=== PATIENT | male | born 1950 | race Caucasian/White ===

== ENCOUNTER 2016-03-13 14:30 | Inpatient (IN) | payer MEDICARE, OTHER ==
[~2016-03-13] VITALS: Ht 195.6 cm; Wt 86.9 kg
[2016-03-13 14:42] VITALS: BP 100/58; PULSE 58; RESP 18; TEMP 97.8; O2SAT 98
--- NOTE | 2016-03-13 14:56 | PD ---
HPI Chief Complaint: Abnormal Results Time Seen by Provider: 14:54 Travel History International Travel<30 days: No Contact w/Intl Traveler<30days: No Traveled to known affect area: No History of Present Illness HPI Patient family reports the patient was just discharged from [facility] so that he could be transferred here for admission firstly diagnosed cancer and hemoglobin 4. 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 Patient denies any complaints or concerns. Denies any chest pain, shortness of breath, abdominal pain, nausea, vomiting, or other concerns at this time. Patient reports he's been taking iron for the anemia but continues to have regular bowel movements. PFSH Past Medical History Anemia: Yes Diminished Hearing: No Gastrointestinal Disorders: Yes (AMPULLARY MASS/ JAUNDICE) Tetanus Vaccination: > 5 Years Influenza Vaccination: No Past Surgical History Abdominal Surgery: Yes (HERNIA REPAIR) Other Surgery: Yes (PROSTATE RADIATION) Social History Alcohol Use: No Tobacco Use: No Substance Use: No Allergies-Medications (Allergen,Severity, Reaction): Coded Allergies: Cipro (Verified Allergy, Unknown, RASH, 03/13/16) Piperazine (Verified Allergy, Unknown, RASH, 03/13/16) Reported Meds & Prescriptions Reported Meds & Active Scripts Active Reported Iron (Ferrous Fumarate) 18 Mg Tab 18 Mg PO DAILY Procrit Inj (Epoetin Den) 20,000 Unit/Ml Inj 20,000 Units SQ 3XWEEK Review of Systems Except as stated in HPI: all other systems reviewed are Neg Physical Exam Narrative GENERAL: Well-developed, well nourished, in no acute distress, and non-ill appearing. SKIN: Warm and dry. Drain noted right upper quadrant abdomen with dressing around it that is dry clean intact. HEAD: Atraumatic. Normocephalic. EYES: Pupils equal and round. EOMI. No scleral icterus. No injection or drainage. ENT: No nasal bleeding or discharge. Mucous membranes pink and moist. NECK: Trachea midline. Supple. No nuclear rigidity. CARDIOVASCULAR: Regular rate and rhythm. No murmur appreciated. RESPIRATORY: No accessory muscle use. No respiratory distress. Clear to auscultation. Breath sounds equal bilaterally. MUSCULOSKELETAL: No obvious deformities. No clubbing. No cyanosis. No edema. Full range of motion. NEUROLOGICAL: Awake and alert. No obvious cranial nerve deficits. Motor grossly within normal limits. Normal speech. PSYCHIATRIC: Appropriate mood and affect; insight and judgment normal. Data Data Last Documented VS Vital Signs Date Time Temp Pulse Resp B/P Pulse Ox O2 Delivery O2 Flow Rate FiO2 03/13/16 14:42 97.8 58 18 100/58 98 Orders Complete Blood Count With Diff (03/13/16 15:05) Comprehensive Metabolic Panel (03/13/16 15:05) Prothrombin Time / Inr (Pt) (03/13/16 15:05) Act Partial Throm Time (Ptt) (03/13/16 15:05) Ct Abd/Pel W Iv Contrast(Rout) (03/13/16 15:05) Iv Access Insert/Monitor (03/13/16 15:05) Ecg Monitoring (03/13/16 15:05) Oximetry (03/13/16 15:05) Sodium Chloride 0.9% Flush (Ns Flush) (03/13/16 15:15) Electrocardiogram (03/13/16 15:05) Oral Contrast - Adult (03/13/16 15:20) Diatrizoate Liq ( Gastroview Liq) (03/13/16 15:33) Labs Laboratory Tests Test 03/13/16 15:00 White Blood Count 11.3 TH/MM3 Red Blood Count 1.52 MIL/MM3 Hemoglobin 5.0 GM/DL Hematocrit 17.0 % Mean Corpuscular Volume 112.1 FL Mean Corpuscular Hemoglobin 33.1 PG Mean Corpuscular Hemoglobin 29.5 % Concent Red Cell Distribution Width 29.5 % Platelet Count 286 TH/MM3 Mean Platelet Volume 8.2 FL Neutrophils (%) (Auto) 86.2 % Lymphocytes (%) (Auto) 5.0 % Monocytes (%) (Auto) 7.9 % Eosinophils (%) (Auto) 0.3 % Basophils (%) (Auto) 0.6 % Neutrophils # (Auto) 9.8 TH/MM3 Lymphocytes # (Auto) 0.6 TH/MM3 Monocytes # (Auto) 0.9 TH/MM3 Eosinophils # (Auto) 0.0 TH/MM3 Basophils # (Auto) 0.1 TH/MM3 CBC Comment AUTO DIFF Differential Comment AUTO DIFF CONFIRMED Platelet Estimate NORMAL Platelet Morphology Comment NORMAL Polychromasia 5.0 % Prothrombin Time 11.1 SEC Prothromb Time International 1.0 RATIO Ratio Activated Partial 29.3 SEC Thromboplast Time Sodium Level 132 MEQ/L Potassium Level 4.2 MEQ/L Chloride Level 98 MEQ/L Carbon Dioxide Level 29.2 MEQ/L Anion Gap 5 MEQ/L Blood Urea Nitrogen 15 MG/DL Creatinine 0.59 MG/DL Estimat Glomerular Filtration 137 ML/MIN Rate Random Glucose 110 MG/DL Calcium Level 7.3 MG/DL Protein Corrected Calcium 8.8 MG/DL Total Bilirubin 5.2 MG/DL Aspartate Amino Transf 67 U/L (AST/SGOT) Alanine Aminotransferase 47 U/L (ALT/SGPT) Alkaline Phosphatase 317 U/L Total Protein 4.4 GM/DL Albumin 1.2 GM/DL MDM Medical Decision Making Medical Screen Exam Complete: Yes Emergency Medical Condition: Yes Interpretation(s) EKG reviewed by Dr. Morse, shows sinus bradycardia with ventricular rate of 56. No STEMI. Differential Diagnosis Cancer, anemia, GI bleed, electrolyte abnormality, other Narrative Course Patient seen and examined. Discussed patient with Dr. Yo. Initial laboratory and radiology studies were ordered. Discussed patient with Dr. Morse , who is agreeable with plan of care and disposition. Discussed all findings and plan care of patient, who was agreeable for admission. All questions were answered. Procedures Procedure Narrative Verbal consent was obtained. Digital rectal exam was performed. Stool specimen applied and test interpreted between 1 and 3 minutes of application and the result was positive. Internal Controls: Both positive and negative controls were validated. car top bolter was present during this exam. Physician Communication Physician Communication [id number] Yo, states he will consult on the patient and recommends repeating blood work here as well as CT of abdomen with oral and IV contrast and checking stool for occult blood. Admitting patient to medicine. Recommends given a dose of Venofer 200 mg if needed. [id number] Grier, who is agreeable to admit the patient. Diagnosis Primary Impression: Ampullary carcinoma Additional Impression: Anemia Qualified Code: D64.9 - Anemia, unspecified type Wilian Knight Mar 13, 2016 14:56
[2016-03-13 15:08] LABS: MEAN CORPUSCULAR HGB CONC 29.5 % (32.0-36.0)
[2016-03-13 15:10] VITALS: RESP 18; O2SAT 99
[2016-03-13] MEDS ORDERED: IRON18TA2 PO (15:12)
[2016-03-13] MEDS ORDERED: PROC20005 SQ (15:12)
[2016-03-13] MEDS ORDERED: SODIUM CHLORIDE 0.9% FLUSH 5 ML FLUSH IVF PRN (15:15)
[2016-03-13] MEDS ORDERED: DIATRIZOATE MEGLUM/DIATRIZOATE SOD 9 ML CUP ONE (15:33)
[2016-03-13 15:35] LABS: AUTOMATED NEUTROPHIL # 9.8 TH/MM3 (1.8-7.7); BASOPHIL # 0.1 TH/MM3 (0-0.2); BASOPHIL % 0.6 % (0.0-2.0); EOSINOPHIL % 0.3 % (0.0-4.0); LYMPHOCYTE # 0.6 TH/MM3 (1.0-4.8); MEAN CELL VOLUME 112.1 FL (80.0-100.0); MEAN CORPUSCULAR HEMOGLOBIN 33.1 PG (27.0-34.0); MONO % 7.9 % (0.0-8.0); NEUT % 86.2 % (16.0-70.0); PLATELET COUNT 286 TH/MM3 (150-450); RED BLOOD COUNT 1.52 MIL/MM3 (4.50-5.90); RED CELL DISTRIBUTION WIDTH 29.5 % (11.6-17.2); WHITE BLOOD COUNT 11.3 TH/MM3 (4.0-11.0)
[2016-03-13 15:37] LABS: HEMO FLAGS AUTO DIFF
[2016-03-13 15:44] LABS: APTT (PATIENT) 29.3 SEC (24.3-30.1); PROTHROMBIN TIME - PATIENT 11.1 SEC (9.8-11.6)
[2016-03-13 15:59] LABS: BICARBONATE 29.2 MEQ/L (21.0-32.0); POTASSIUM 4.2 MEQ/L (3.5-5.1)
[2016-03-13 16:01] LABS: CALCIUM-PROTEIN CORRECTED 8.8 MG/DL (8.5-10.1); TOTAL BILIRUBIN ADULT 5.2 MG/DL (0.2-1.0)
[2016-03-13 16:25] LABS: PLATELET ESTIMATE SMEAR NORMAL (NORMAL); PLATELET MORPHOLOGY NORMAL (NORMAL); SCAN/DIFF AUTO DIFF CONFIRMED
[2016-03-13] MEDS ORDERED: ACETAMINOPHEN 325 MG TAB PO PRN (17:00)
[2016-03-13] MEDS ORDERED: ONDANSETRON HCL 4 MG/2 ML VIAL IVP PRN (17:00)
[2016-03-13] MEDS ORDERED: NALOXONE HCL 0.4 MG/ML AMP IV PRN (17:00)
[2016-03-13] MEDS ORDERED: SODIUM CHLORIDE 0.9% FLUSH 5 ML FLUSH FLUSH PRN (17:00)
[2016-03-13] MEDS ORDERED: IOHEXOL 350 MG/ML 10 ML VIAL (for RAD DIAG) IV ONE (17:26)
--- NOTE | 2016-03-13 17:40 | RADRPT ---
EXAM DATE/TIME: 03/13/2016 17:24 [facility] COMPARISON: No previous studies available for comparison. INDICATIONS : Jaundice. Anemia. IV CONTRAST: 94 cc Omnipaque 350 (iohexol) IV ORAL CONTRAST: Prescribed oral contrast ingested. RADIATION DOSE: 15.33 CTDIvol (mGy) MEDICAL HISTORY : Anemia. Ampullary mass. SURGICAL HISTORY : Inguinal hernia repair. ENCOUNTER: Initial ACUITY: 4 - 6 days PAIN SCALE: 0/10 LOCATION: Abdomen TECHNIQUE: Volumetric scanning of the abdomen and pelvis was performed. Using automated exposure control and ad justment of the mA and/or kV according to patient size, radiation dose was kept as low as reasonably achievable to obtain optimal diagnostic quality images. FINDINGS: The bony structures are intact. Lung bases reveal bilateral pleural effusions with compressive atelec tasis and air bronchograms in bilateral lower lobes. There is a percutaneous catheter in place in the right lateral abdomen through the liver extending into the common bile duct and the duodenum 1.2 cm width of the common bile duct air containing and air within intrahepatic bile ducts. Gallbladder is v isualized to be normal. Pancreas reveals cystic dilatation throughout of the pancreatic duct up to 1. 5 cm. There is ascitic fluid throughout the abdomen. Bowel distribution is benign no evidence of free air in the abdomen and bilateral kidneys and spleen appear normal as are adrenal glands.CONCLUSION: Percutaneous biliary stent in place with air in the bile ducts with maximum width of the common duct 1.2 cm. Cystic dilatation of pancreatic duct. There is a history of apparently of an ampullary carc inoma. There is ascitic fluid throughout the abdomen and pelvis. Bilateral pleural effusions noted wi th compressive atelectasis in the posterior segments of the lower lobes Reddy Wolf MD on March 13, 2016 at 17:34 Board Certified Radiologist. This report was verified electronically.
--- NOTE | 2016-03-13 17:41 | HHI.HP ---
HPI Service [facility] Primary Care Physician Cirilo Traore, DO Admission Diagnosis ampullary cancer, anemia Diagnoses: Chief Complaint: anemia (MarvelRinaceci MITCHELL) Travel History International Travel<30 Days: No Contact w/Intl Traveler <30 Da: No Traveled to Known Affected Are: No (Rina Girer) History of Present Illness This is an unfortunate 65-year-old male who presented to this facility for evaluation of anemia, hemoglobin of 4. Patient was recently admitted at [facility] from March 01 and was discharged home today. Pt presented here for further evaluation and to seek a second opinion. Information is obtained from the patient, his and from extensive review of records from [facility]. Patient initially presented to [facility] with complaint of jaundice, generalized malaise, fatigue and early satiety for several months. He saw his primary care physician who did laboratory workup and was noted with elevated liver function tests. PCP also order ultrasound of the abdomen that showed some inflammation of the gallbladder and liver. When he presented to [facility], he was noted with significant anemia, hemoglobin of 6.2. Patient is a Jehovah witness and does not accept blood transfusion. During hospitalization at [facility], patient was evaluated by oncologist Dr. Green, Dr. Eaton, Dr. Ba, Dr. Brock (IR). Patient underwent imaging studies, that showed an ampullary mass. Dr. Eaton attempted ERCP with biopsy on 03/03/2016 however he was not able to thread the wire although a biopsy was obtained. 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 Dr. Ba evaluated patient, however mass was not resectable unless anemia was resolved. Patient received Procrit as well as iron infusions. Interventional radiology was consulted and a biliary drain was inserted on 03/03/2016. Apparently the drain clogged and it was exchanged on 03/11/2016 and is currently capped. A biliary stent was also considered however interventional radiology was not able to insert because of the low hemoglobin. Review of records indicate there is possibility that there is bleeding from the mass. Conservative care was recommended, Dr. Green briefly discussed hospice however patient and his would like to pursue more aggressive treatment; possibly at a facility in [place] that offers bloodless procedure. Dr. Ba also discussed the possibility of robotic surgery at this facility. Patient was discharge home today in fair condition and instructed to continue with oral iron replacement. Patient endorses that he was told by leaders of his hoahaoism about oncologist Dr. Willett and the possibility that he may offer some options in regards to treatment. He adamantly refuses blood transfusion per his presybeterian beliefs. In the ER, patient was evaluated, he was noted with blood pressure 100/58, heart rate 58, afebrile temperature 97.8. Sats 98% on 2 L. Hemoglobin was 5, hematocrit 17, platelets 286, WBC 11.3, MCV 112.1. BMP was remarkable for sodium of 132, hypocalcemia, corrected calcium 8.8. Total bilirubin 5.2. AST 67, ALTs 47, alkaline phosphatase 317. Dr. Willett was called from the emergency room and requested admission to medical services and repeat of the CT of the abdomen with oral and IV contrast. Stool for occult blood was checked and it was positive. He ordered a dose of Venofer 200 mg if needed. According to patient , prior to this recent events he was in good health. Has prior history of prostate cancer diagnosed in 2016 and treated at [facility] with brachytherapy. He has serial PSAs done at facility in [place]. He doesn't follow locally with a urologist. Other than prostate cancer, he denies any history of coronary artery disease, no hypertension, no hyperlipidemia, no diabetes. Patient is admitted for further evaluation and treatment. (Rina Grier) Review of Systems Constitutional: COMPLAINS OF: Fatigue, Change in appetite, DENIES: Diaphoretic episodes, Fever, Weight gain, Weight loss, Chills, Dizziness, Night Sweats Endocrine: DENIES: Heat/cold intolerance, Polydipsia, Polyuria, Polyphagia Eyes: DENIES: Blurred vision, Diplopia, Eye inflammation, Eye pain, Vision loss , Photosensitivity, Double Vision Ears, nose, mouth, throat: DENIES: Tinnitus, Hearing loss, Vertigo, Nasal discharge, Oral lesions, Throat pain, Hoarseness, Ear Pain, Running Nose, Epistaxis, Sinus Pain, Toothache, Odynophagia Respiratory: DENIES: Apneas, Cough, Snoring, Wheezing, Hemoptysis, Sputum production, Shortness of breath Cardiovascular: COMPLAINS OF: Dyspnea on Exertion, Lower Extremity Edema, DENIES: Chest pain, Palpitations, Syncope, PND, Orthopnea, Claudication Gastrointestinal: DENIES: Abdominal pain, Black stools, Bloody stools, Constipation, Diarrhea, Nausea, Vomiting, Difficulty Swallowing, Anorexia Genitourinary: DENIES: Sexual dysfunction, Urinary frequency, Urinary incontinence, Urgency, Hematuria, Dysuria, Nocturia, Penile Discharge, Testicular Pain, Testicular Swelling Musculoskeletal: DENIES: Joint pain, Muscle aches, Stiffness, Joint Swelling, Back pain, Neck pain Integumentary: COMPLAINS OF: Abnormal pigmentation, DENIES: Nail changes, Pruritus, Rash Hematologic/lymphatic: DENIES: Bruising, Lymphadenopathy Immunologic/allergic: DENIES: Eczema, Urticaria Neurologic: DENIES: Abnormal gait, Headache, Localized weakness, Paresthesias, Seizures, Speech Problems, Tremor, Poor Balance Psychiatric: DENIES: Anxiety, Confusion, Mood changes, Depression, Hallucinations, Agitation, Suicidal Ideation, Homicidal Ideation, Delusions ( Rina Grier) Past Family Social History Past Medical History Prostate cancer diagnosed in 2015, treated with brachytherapy Recent diagnosis of cancer of the ampulla. Past Surgical History Hernia surgery in 2006 EGD and colonoscopy Reported Medications Reported Meds & Active Scripts Active Reported Iron (Ferrous Fumarate) 18 Mg Tab 18 Mg PO DAILY Procrit Inj (Epoetin Den) 20,000 Unit/Ml Inj 20,000 Units SQ 3XWEEK (Rina Grier) Allergies: Coded Allergies: Cipro (Verified Allergy, Unknown, RASH, 03/13/16) Piperazine (Verified Allergy, Unknown, RASH, 03/13/16) Active Ordered Medications Inpatient Medications Acetaminophen (Tylenol) 650 mg Q4H PRN PO TEMP > 100.4; Start 03/13/16 at 17:00 IV Flush (NS Flush) 2 ml BID FLUSH ; Start 03/13/16 at 21:00 Naloxone HCl (Narcan Inj) 0.4 mg UNSCH PRN IV SEE LABEL COMMENTS; Start at 17:00 Ondansetron HCl (Zofran Inj) 4 mg Q6H PRN IVP NAUSEA OR VOMITING; Start at 17:00 Family History Mother is alive and well, she's 92 years old Father disease, history of coronary artery disease Has a sister who is alive and well Has an aunt on the maternal side with history esophageal cancer Social History 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 SKIN: Cool, dry jaundice. HEAD: Atraumatic. Normocephalic. No temporal or scalp tenderness. EYES: Pupils equal round and reactive. Extraocular motions intact. Scleral icterus. No injection or drainage. ENT: Nose without bleeding, purulent drainage or septal hematoma. Throat without erythema, tonsillar hypertrophy or exudate. Uvula midline. Airway patent. NECK: Trachea midline. No JVD or lymphadenopathy. Supple, nontender, no meningeal signs. CARDIOVASCULAR: Regular rate and rhythm without murmurs, gallops, or rubs. RESPIRATORY: Clear to auscultation. Breath sounds equal bilaterally. No wheezes , rales, or rhonchi. GASTROINTESTINAL: Abdomen soft, distended, positive for ascites. Bowel sounds, normoactive 4. Has a biliary drain to the right upper abdomen that is capped, dressing is dry and intact. MUSCULOSKELETAL: Extremities without clubbing, cyanosis. No joint tenderness, effusion, or edema noted. No calf tenderness. Negative Homans sign bilaterally. Patient noted with significant pedal edema, 3+, pedal pulses difficult to palpate due to the edema. NEUROLOGICAL: Awake and alert. Cranial nerves II through XII intact. Motor and sensory grossly within normal limits. Five out of 5 muscle strength in all muscle groups. Normal speech. Laboratory Laboratory Tests Test 03/13/16 15:00 White Blood Count 11.3 Red Blood Count 1.52 Hemoglobin 5.0 Hematocrit 17.0 Mean Corpuscular Volume 112.1 Mean Corpuscular Hemoglobin 33.1 Mean Corpuscular Hemoglobin 29.5 Concent Red Cell Distribution Width 29.5 Platelet Count 286 Mean Platelet Volume 8.2 Neutrophils (%) (Auto) 86.2 Lymphocytes (%) (Auto) 5.0 Monocytes (%) (Auto) 7.9 Eosinophils (%) (Auto) 0.3 Basophils (%) (Auto) 0.6 Neutrophils # (Auto) 9.8 Lymphocytes # (Auto) 0.6 Monocytes # (Auto) 0.9 Eosinophils # (Auto) 0.0 Basophils # (Auto) 0.1 CBC Comment AUTO DIFF Differential Comment AUTO DIFF CONFIRMED Platelet Estimate NORMAL Platelet Morphology Comment NORMAL Polychromasia 5.0 Prothrombin Time 11.1 Prothromb Time International 1.0 Ratio Activated Partial 29.3 Thromboplast Time Sodium Level 132 Potassium Level 4.2 Chloride Level 98 Carbon Dioxide Level 29.2 Anion Gap 5 Blood Urea Nitrogen 15 Creatinine 0.59 Estimat Glomerular Filtration 137 Rate Random Glucose 110 Calcium Level 7.3 Protein Corrected Calcium 8.8 Total Bilirubin 5.2 Aspartate Amino Transf 67 (AST/SGOT) Alanine Aminotransferase 47 (ALT/SGPT) Alkaline Phosphatase 317 Total Protein 4.4 Albumin 1.2 (Rina Grier) Result Diagram: 03/13/16 1500 03/13/16 1500 Assessment and Plan Problem List: (1) Anemia (2) Ampullary carcinoma (3) Obstructive jaundice due to cancer (4) History of prostate cancer (5) Protein calorie malnutrition (6) Heme positive stool (7) percutaneous biliary drain Assessment and Plan Admit to Dr. 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 Patient with significant anemia, Jehovah witness, does not permit blood transfusion. Has received Venofer, Procrit. Hemoglobin 5, hematocrit 17. -Dr. Willett has been consulted -Defer to Dr. Willett for Venofer infusion and/or Procrit CT of the abdomen has been ordered, results are pending -Discussed with patient and , their goals remain aggressive. They plan to also pursue further treatment at facility in [place] that offers bloodless procedures. History of prostate cancer, status post radiation [facility] -Patient has serial PSAs done as outpatient S/P right biliary drain -monitor site -Drain currently capped, may need to be placed to gravity for drainage. Ascites and peripheral edema -monitor for now -elevate legs SCDs for DVT prophylaxis Home medications reviewed, initiated as indicated Condition guarded, goals of care remain aggressive. Plan of care discussed with patient and his , their questions answered detail. Plan of care discussed with attending and registered nurse. Further management of the patient will be dependent on the hospital course Patient requires inpatient admission for anticipated stay greater than 2 days for symptomatic anemia with recent diagnosis of ampullary cancer, obstructive jaundice with ascites and peripheral edema. Patient at risk for complications that can result in possible cardiogenic shock, possibly . Patient requires admission for evaluation by oncology, monitoring of blood counts, IV iron infusion, further diagnostic workup. Anticipated discharge back to home with home health care versus rehabilitation facility when stable This patient was seen by myself and Dr. Nelson, this H&P is written on his behalf (Rina Grier) Assessment and Plan PT is seen & Examined record s from [facility] reviewed d/w PT & his family at bedside d/w Rina d/w Dr willett see Orders see H&P by Rina delgado f/u Sukhdeep Nelson MD Mar 13, 2016 19:16 (Sukhdeep Nelson MD) Physician Certification 2 Midnight Certification Type: Admission for Inpatient Services Order for Inpatient Services The services are ordered in accordance with Medicare regulations or non- Medicare payer requirements, as applicable. In the case of services not specified as inpatient-only, they are appropriately provided as inpatient services in accordance with the 2-midnight benchmark. Estimated LOS (days): 2 2 days is the estimated time the patient will need to remain in the hospital, assuming treatment plan goals are met and no additional complications. Post-Hospital Plan: Not yet determined (Rina Grier) Problem Qualifiers (1) Anemia: Qualified Code: D64.9 - Anemia, unspecified type Rina Grier Mar 13, 2016 17:41 Sukhdeep Nelson MD Mar 18, 2016 21:42
[2016-03-13 17:50] VITALS: BP 102/58; PULSE 58; RESP 17; TEMP 98; O2SAT 99
[2016-03-13 19:00] VITALS: BP 112/63; PULSE 63; RESP 14; TEMP 98.4; O2SAT 97
--- NOTE | 2016-03-13 19:16 | HHI.PR ---
Objective Objective Results - Vital Signs Date Time Temp Pulse Resp B/P Pulse Ox O2 Delivery O2 Flow Rate FiO2 03/13/16 17:50 98.0 58 17 102/58 99 Nasal Cannula 2 03/13/16 15:10 18 99 Room Air 03/13/16 14:50 58 18 98 Nasal Cannula 2 03/13/16 14:42 97.8 58 18 100/58 98 I/O 03/12/16 03/12/16 03/12/16 03/13/16 03/13/16 03/13/16 07:00 15:00 23:00 07:00 15:00 23:00 Output Total 600 ml Balance -600 ml Output Urine Total 600 ml # Voids 1 # Bowel Movements 0 Result Diagram: 03/13/16 1500 03/13/16 1500 Other Results Laboratory Tests Test 03/13/16 15:00 White Blood Count 11.3 Red Blood Count 1.52 Hemoglobin 5.0 Hematocrit 17.0 Mean Corpuscular Volume 112.1 Mean Corpuscular Hemoglobin 33.1 Mean Corpuscular Hemoglobin 29.5 Concent Red Cell Distribution Width 29.5 Platelet Count 286 Mean Platelet Volume 8.2 Neutrophils (%) (Auto) 86.2 Lymphocytes (%) (Auto) 5.0 Monocytes (%) (Auto) 7.9 Eosinophils (%) (Auto) 0.3 Basophils (%) (Auto) 0.6 Neutrophils # (Auto) 9.8 Lymphocytes # (Auto) 0.6 Monocytes # (Auto) 0.9 Eosinophils # (Auto) 0.0 Basophils # (Auto) 0.1 CBC Comment AUTO DIFF Differential Comment AUTO DIFF CONFIRMED Platelet Estimate NORMAL Platelet Morphology Comment NORMAL Polychromasia 5.0 Prothrombin Time 11.1 Prothromb Time International 1.0 Ratio Activated Partial 29.3 Thromboplast Time Sodium Level 132 Potassium Level 4.2 Chloride Level 98 Carbon Dioxide Level 29.2 Anion Gap 5 Blood Urea Nitrogen 15 Creatinine 0.59 Estimat Glomerular Filtration 137 Rate Random Glucose 110 Calcium Level 7.3 Protein Corrected Calcium 8.8 Total Bilirubin 5.2 Aspartate Amino Transf 67 (AST/SGOT) Alanine Aminotransferase 47 (ALT/SGPT) Alkaline Phosphatase 317 Total Protein 4.4 Albumin 1.2 Physical Exam Physical Exam PT is seen & Examined record s from [facility] reviewed d/w PT & his family at bedside d/w Rina d/w Dr currie see Orders see H&P by Rina delgado f/u Sukhdeep Nelson MD Mar 13, 2016 19:16
--- NOTE | 2016-03-13 19:20 | EKG ---
Date Performed: 03/13/2016 Time Performed: 15:41:38 PTAGE: 65 years EKG: BASELINE ARTIFACT PRESENT. SINUS BRADYCARDIA MODERATE INTRAVENTRICULAR CONDUCTION DELAY BOR DERLINE ECG NO PREVIOUS TRACING DOCTOR: Arben House Interpretating Date/Time 03/13/2016 19:19:08
--- NOTE | 2016-03-13 21:09 | MB ---
cc: CIRILO TRAORE ZAFAR MD DATE OF CONSULTATION 03/13/16 DATE OF 1950. PRIMARY CARE PHYSICIAN Dr. Cirilo Traore CONSULTING PHYSICIAN Dr. Nelson of the hospitalist service. 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 Additionally, the patient has severe anemia secondary to GI blood losses. CHIEF COMPLAINT Mr. Mullins reports having had a three-month history of decreased appetite, weight loss and a two-month history of jaundice. HISTORY OF PRESENT ILLNESS Mr. Mullins is a very pleasant 65-year-old male who presented to the [facility] emergency department earlier this afternoon after being discharged from [facility] in [place]. Mr. Mullins reports being in his usual excellent state of health until November of 2015. Up until that time, he was fully functional and reports hiking up to eight miles at a time without any impairments. The patient, starting late November 2015, began to notice a decreasing appetite and onset of increased fatigue. He reported these symptoms to his primary care physician, Dr. Cirilo Traore, and underwent blood work. Blood work revealed abnormal liver function tests specifically elevated bilirubin levels. The patient underwent outpatient imaging studies including ultrasound of the abdomen which revealed abnormalities within the liver and biliary drainage system. He was subsequently recommended admission to [facility] with inpatient evaluation. The patient was referred to [facility] where he was confirmed to have hyperbilirubinemia secondary to biliary obstruction. He was also noted to be anemic due to iron deficiency from GI losses. He underwent imaging studies including CT scan of the abdomen and pelvis with intravenous contrast performed on 03/01/2016; the study revealed marked biliary and pancreatic duct dilatation ending at the ampulla. The gallbladder was also noted to be dilated. There was an ampullary mass-like density suspicious for malignancy. Additionally, he underwent an MRCP on 03/05/2015 which revealed persistent dilatation of the pancreatic duct as well as the common bile duct, intrahepatic biliary ducts were also distended. A periampullary mass was suspected, although not well visualized. The patient underwent an endoscopy on 03/03/2016. This revealed a large ulcerated mass around the ampulla consistent with malignancy. This was biopsied. The pathologic findings were consistent with adenocarcinoma (moderately differentiated) with focal signet ring formation. An ERCP could not be performed due to inability to pass the scope beyond the obstruction. The patient subsequently underwent placement of a percutaneous biliary drain for relief of the hyperbilirubinemia and biliary obstruction at [facility]. Additionally, he was noted to be anemic secondary to GI losses (stool for occult blood was positive on testing at [facility] on 03/13/2016). The patient was evaluated by oncology and surgical oncology at [facility]. Given his poor performance status, poor nutritional status and anemia, he was recommended Hospice level of care. The patient has yet to undergo any systemic therapy. He was evaluated by one of the [place] cancer specialists at that time. He was being discharged today with Hospice level of care. The patient and his decided, however, to come to [facility] in [place] for a second opinion. PAST MEDICAL HISTORY 1. Recently diagnosed adenocarcinoma of the ampulla. 2. Prostate carcinoma diagnosed in 2014 treated with brachytherapy. PAST SURGICAL HISTORY 1. Prostate biopsy. 2. Hernia repair in 2016 FAMILY HISTORY Father at age 79. Mom living at 92. The patient has two separate aunts with metastatic malignancy and an uncle who had prostate cancer in his 80s. He also recently lost a first cousin to a cancer. They do not know what the primary was. ALLERGIES CIPROFLOXACIN - CAUSES A RASH PIPERAZINE SOCIAL HISTORY The patient is , lives at home with his . 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 MEDICATIONS Current inpatient 1. Tylenol 650 mg p.o. q.4 h as needed for fever. 2. Zofran 4 mg IV q.6 h as needed for nausea and vomiting. REVIEW OF SYSTEMS A 13-point review of systems is obtained. the following are the pertinent positives: CONSTITUTIONAL: The patient reports good appetite, reports weight loss, reports generalized fatigue and weakness. HEENT: Denies headaches, blurry vision, difficulty swallowing or soreness in the throat. RESPIRATORY: Reports exertional dyspnea, reports cough, denies hemoptysis. CARDIOVASCULAR: Denies angina-like chest pain, PND, orthopnea. GI: Reports abdominal distension, denies nausea, vomiting, diarrhea, hematochezia. He does report dark stools. He does report yellow jaundice but denies epigastric pain or abdominal pain in general LOWER EXTREMITIES: Bilateral pretibial edema. No calf tenderness. PHYSICIAN ASSISTANT CERTIFIED: No focal sensory or motor deficits but does feel generally weak. PHYSICAL EXAMINATION VITAL SIGNS: temperature 98 degrees Fahrenheit, heart rate 58 beats a minute, respiratory rate 17, blood pressure 102/58, O2 sats are 99% on room air. GENERAL APPEARANCE: Mr. Mullins is an elderly male. He is tall, pale and jaundiced appearing. He is sitting up in bed and is in no apparent distress. HEENT: Head atraumatic, normocephalic, conjunctive are pale, sclerae are icteric, EOMI, PERRLA, oral exam no pharyngeal erythema. NECK: No palpable cervical or supraclavicular lymphadenopathy. RESPIRATORY: Decreased bibasilar breath sounds with dullness to percussion, good air movement on anterior exam over the upper and middle lung zones. CARDIOVASCULAR: Regular rhythm, S1-S2. No obvious murmurs, rubs or gallops. ABDOMEN: Belly is distended. He is generally thin. There is some cutaneous edema identified. No palpable organ enlargement is appreciated. EXTREMITIES: Bilateral pretibial edema, no calf tenderness. He does have tenderness over the tibia, specifically over the left superior anterior aspect of the tibia. PHYSICIAN ASSISTANT CERTIFIED: No focal sensory motor deficits. LABORATORY FINDINGS Blood work dated 03/13/2016: WBC count 11.3, hemoglobin 5 gm/dl, hematocrit 17%, MCV 11.2, platelet count 286, absolute neutrophil count of 9.8. Chemistries: Sodium 132, potassium 4.2, chloride 98, bicarbonate 29, BUN 15, creatinine 0.6, EGFR 137, calcium 7.3, total bilirubin is 5.2, AST 76, ALT 47, alkaline phosphatase 317, albumin of 1.2. Coags - PT 11.1, PTT 29, INR one. PATHOLOGY: Review of pathology report forwarded to us from [facility] dated 03/03/2016: ampullary mass biopsy - Moderately differentiated adenocarcinoma with focal signet ring formation. Lymphovascular invasion was not identified. IMAGING STUDIES CT scan of the abdomen with intravenous contrast dated 03/13/2016: Lung bases reveal bilateral pleural effusions with compressive atelectasis and air bronchograms in the bilateral lower lobe. There is a percutaneous biliary drain in place with air in the bile duct with maximum width of the common bile duct of 1.2 cm. Cystic dilatation of the pancreatic duct. There is apparently a history of ampullary carcinoma identified. Ascitic fluid throughout the abdomen and pelvis. Bilateral pleural effusions noted as outlined above. ASSESSMENT Mr. 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 The patient initially presented several weeks ago with loss of appetite and obstructive jaundice. An inpatient workup at [facility] which included an MRCP, CT of the abdomen and pelvis as well as an EGD revealed a large ampullary mass resulting in common bile duct obstruction with resultant dilatation of the pancreatic duct and extra- and intrahepatic bile ducts. An ERCP could not identify the orifice of the common bile duct and, therefore, percutaneous drain had to be placed for management of the hyperbilirubinemia. Over the course of his hospitalization, the patient became increasingly anemic secondary to GI losses ( stool guaiac for blood positive) the etiology of which was thought to be iron deficiency anemia. Because he is a Pentecostal, he was treated with intravenous iron and Epogen support. Per the patient and his family, they were recommended best supportive care/Hospice level of care and wish to seek out second opinion. They therefore presented to [facility] directly after being discharged from [facility] in [facility]. RECOMMENDATIONS 1. Adenocarcinoma with signet cell formation of the ampule of vater: At this point, I would like to have the patient evaluated by radiation oncology for palliative radiation to the ampule area mass. I suspect this lesion is actively bleeding. The priority at this time is to stabilize his hemoglobin and hematocrit and subsequently stage him to determine if this man may eventually be resectable. It may be reasonable to obtain additional inpatient staging studies with a CT of the chest as well. He does have ascites as well as bilateral pleural effusions. These may be secondary to his low albumin and secretion. He has no definite evidence of metastases based on his imaging scans. Additionally, I will obtain a CEA and CA19-9 tumor markers. 2. Anemia: Given the patient's preference and jewish beliefs, he will be treated without blood product support. He will receive ongoing iron infusions as well as erythropoiesis stimulating agents. The priority, however, will be to stop the ongoing bleeding. 3. Nutrition: He is tolerating p.o. diet well. I would rather continue this. It may be reasonable to treat him with intravenous albumin infusions to help manage his third spacing if this becomes more problematic. The oncology service will follow along the hospital course. MD BRANDON Ghotra /7:48 PM /8:37 PM
[2016-03-13] MEDS: SODIUM CHLORIDE 0.9% FLUSH 5 ML FLUSH FLUSH SCH (21:12)
[2016-03-13] MEDS: IRON SUCROSE INJ 100 MG in SODIUM CHLORIDE 0.9% INJ 100 ML IV SCH (22:13)
[2016-03-13 23:00] VITALS: BP 108/61; PULSE 70; RESP 15; O2SAT 98
[2016-03-14] VITALS (7 sets, daily range): BP systolic 93–106; BP diastolic 48–57; PULSE 62–64; RESP 16–19; TEMP 97.7–99.2; O2SAT 93–97
--- NOTE | 2016-03-14 07:45 | PD.ONC.PN ---
Subjective Subjective Remarks Mr. Mullins reports persistent cough whenever he tries to take a deep breath. He denies pain, had a full meal last night without problems ( brought it in) . Wants to know if he can go on a regular diet. No other changes reported. Objective Data Date Time Temp Pulse Resp B/P Pulse Ox O2 Delivery O2 Flow Rate FiO2 03/14/16 04:00 63 16 106/48 95 03/14/16 00:00 97.7 64 16 93/50 93 03/13/16 23:00 70 15 108/61 98 Nasal Cannula 2 03/13/16 19:00 63 14 97 Nasal Cannula 2 03/13/16 19:00 98.4 63 14 112/63 97 Nasal Cannula 2 03/13/16 17:50 98.0 58 17 102/58 99 Nasal Cannula 2 03/13/16 15:10 18 99 Room Air 03/13/16 14:50 58 18 98 Nasal Cannula 2 03/13/16 14:42 97.8 58 18 100/58 98 Result Diagram: 03/13/16 1500 03/13/16 1500 Laboratory Results Laboratory Tests Test 03/13/16 15:00 White Blood Count 11.3 TH/MM3 Red Blood Count 1.52 MIL/MM3 Hemoglobin 5.0 GM/DL Hematocrit 17.0 % Mean Corpuscular Volume 112.1 FL Mean Corpuscular Hemoglobin 33.1 PG Mean Corpuscular Hemoglobin 29.5 % Concent Red Cell Distribution Width 29.5 % Platelet Count 286 TH/MM3 Mean Platelet Volume 8.2 FL Neutrophils (%) (Auto) 86.2 % Lymphocytes (%) (Auto) 5.0 % Monocytes (%) (Auto) 7.9 % Eosinophils (%) (Auto) 0.3 % Basophils (%) (Auto) 0.6 % Neutrophils # (Auto) 9.8 TH/MM3 Lymphocytes # (Auto) 0.6 TH/MM3 Monocytes # (Auto) 0.9 TH/MM3 Eosinophils # (Auto) 0.0 TH/MM3 Basophils # (Auto) 0.1 TH/MM3 CBC Comment AUTO DIFF Differential Comment AUTO DIFF CONFIRMED Platelet Estimate NORMAL Platelet Morphology Comment NORMAL Polychromasia 5.0 % Prothrombin Time 11.1 SEC Prothromb Time International 1.0 RATIO Ratio Activated Partial 29.3 SEC Thromboplast Time Sodium Level 132 MEQ/L Potassium Level 4.2 MEQ/L Chloride Level 98 MEQ/L Carbon Dioxide Level 29.2 MEQ/L Anion Gap 5 MEQ/L Blood Urea Nitrogen 15 MG/DL Creatinine 0.59 MG/DL Estimat Glomerular Filtration 137 ML/MIN Rate Random Glucose 110 MG/DL Calcium Level 7.3 MG/DL Protein Corrected Calcium 8.8 MG/DL Total Bilirubin 5.2 MG/DL Aspartate Amino Transf 67 U/L (AST/SGOT) Alanine Aminotransferase 47 U/L (ALT/SGPT) Alkaline Phosphatase 317 U/L Total Protein 4.4 GM/DL Albumin 1.2 GM/DL Imaging Studies Last 24 hours Impressions Abdomen/Pelvis CT 03/13/16 1505 Signed Impressions: Service Date/Time: Sunday, March 13, 2016 17:24 - CONCLUSION: Percutaneous biliary stent in place with air in the bile ducts with maximum width of the common duct 1.2 cm. Cystic dilatation of pancreatic duct. There is a history of apparently of an ampullary carcinoma. There is ascitic fluid throughout the abdomen and pelvis. Bilateral pleural effusions noted with compressive atelectasis in the posterior segments of the lower lobes Reddy Wolf MD Administered Medications Medications (Trade) Dose Ordered Sig/Zackary Route PRN Reason Start Time Stop Time Status Last Admin Dose Admin IV Flush 2 ml 2 ml BID FLUSH 03/13/16 21:00 03/13/16 21:12 Iron Sucrose/ Sodium Chloride (Venofer Inj/NS Inj) 105 ml @ 105 mls/hr DAILY IV 03/13/16 22:00 03/15/16 09:59 03/13/16 22:13 Objective Remarks GENERAL APPEARANCE: Mr. Mullins is an elderly male. He is tall, pale and jaundiced appearing. He is sitting up in bed and is in no apparent distress. HEENT: Head atraumatic, normocephalic, conjunctive are pale, sclerae are icteric, EOMI, PERRLA, oral exam no pharyngeal erythema. NECK: No palpable cervical or supraclavicular lymphadenopathy. RESPIRATORY: Decreased bibasilar breath sounds with dullness to percussion, good air movement on anterior exam over the upper and middle lung zones. CARDIOVASCULAR: Regular rhythm, S1-S2. No obvious murmurs, rubs or gallops. ABDOMEN: Belly is distended. He is generally thin. There is some cutaneous edema identified. No palpable organ enlargement is appreciated. EXTREMITIES: Bilateral pretibial edema, no calf tenderness. He does have tenderness over the tibia, specifically over the left superior anterior aspect of the tibia. PRECAST MOLDER: No focal sensory motor deficits. Assessment/Plan Assessment Mr. 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 The patient initially presented several weeks ago with loss of appetite and obstructive jaundice. An inpatient workup at [facility] which included an MRCP, CT of the abdomen and pelvis as well as an EGD revealed a large ampullary mass resulting in common bile duct obstruction with resultant dilatation of the pancreatic duct and extra- and intrahepatic bile ducts. An ERCP could not identify the orifice of the common bile duct and, therefore, percutaneous drain had to be placed for management of the hyperbilirubinemia. Over the course of his hospitalization, the patient became increasingly anemic secondary to GI losses ( stool guaiac for blood positive) the etiology of which was thought to be iron deficiency anemia. Because he is a [employer], he was treated with intravenous iron and Epogen support. Per the patient and his family, they were recommended best supportive care/Hospice level of care and wish to seek out second opinion. They therefore presented to [facility] directly after being discharged from [facility] in [facility]. Plan 1. Ampullary mass: Rad Onc to evaluate the pt today for palliative RT to the mass to help stop bleeding. 2. Anemia: IV iron and EPO. 3. Nutrition: Diet changed to regular. 4. Pleural effusions: Given low H&H at this time, I would not recommend thoracentesis. Symptomatic management. 5. Percutaneous biliary tube: Request IR to evaluate for instructions on care ; i.e. whether we need to cap or let it drain and also, instructions on flushing this. 6. Biliary obstruction: Repeat T. Bili level today; if increasing; will need to open drain to allow flow. Trevor Willett MD Mar 14, 2016 07:45
[2016-03-14] MEDS: SODIUM CHLORIDE 0.9% FLUSH 5 ML FLUSH FLUSH SCH ×2 (09:08→20:55)
[2016-03-14] MEDS: IRON SUCROSE INJ 100 MG in SODIUM CHLORIDE 0.9% INJ 100 ML IV SCH (10:14)
--- NOTE | 2016-03-14 10:15 | MB ---
cc: YAA WILLETT MD PORTER, AARON DO KROCHAK,MARY Mercado M.D. DATE OF CONSULTATION 03/14/2016 DATE OF 1950 CHIEF COMPLAINT 1. Moderately differentiated adenocarcinoma with signet ring formation of the ampule of Vater. 2. Severe anemia secondary to GI blood loss in a patient who declines blood transfusions BRIEF HISTORY This is a 65-year-old gentleman who presented to the emergency room at [facility]. His history is that he was worked up at [facility] in [place] and found to have a adenocarcinoma of the ampulla of Vater. He had a transcutaneous biliary drainage procedure as they were not able to bypass the tumor endoscopically. Unfortunately, he was not felt to be a candidate for surgery or chemotherapy and he was referred home on hospice. He subsequently presented to this emergency room for a second opinion. He has been seen by Dr. Willett. He has had a CT scan of his abdomen and pelvis performed revealing a biliary stent in place with air in the bile duct. This is a percutaneous biliary stent. There is a cystic dilatation of the pancreatic duct. There is ascitic fluid with bilateral pleural effusions. Additionally, this gentleman has been noted to have a hemoglobin of five. He has documented GI blood loss and for druze regions he does not agree to blood transfusions We have been requested to see this gentleman to consider a palliative radiation treatment in an attempt to stop this bleeding and if he is able to recover adequately, further palliative care in the form of surgery or chemotherapy would be considered. In general, this gentleman is pain free. He admits to being weak. He has been mobile. He admits to a 15-20 pounds weight loss. PAST MEDICAL AND SURGICAL HISTORY Includes: 1. Adenocarcinoma the ampulla of Vater. 2. Previous adenocarcinoma of the prostate treated with HDR in [place] in 2014. 3. He has also had a hernia repair. FAMILY HISTORY AND SOCIAL HISTORY He is and lives at home with his . 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 His mother is living at age 92. Father at age 79. He has an uncle with prostate cancer. ALLERGIES CIPROFLOXACIN AND PIPERAZINE REVIEW OF SYSTEMS He has had a 15-20 pounds weight loss constitutionally. HEAD, EYES, EARS, NOSE, AND THROAT: Denies difficulty with vision, swallowing or altered taste. RESPIRATORY: He does get short of breath with exertion. No cough or sputum. CARDIOVASCULAR: Denies chest pains, palpitation, but does have dependent edema. GI: Has abdominal distension likely related to ascites. No abdominal pain. He has had dark stools. LEAD OXIDE MILL TENDER: No seizures or strokes. MUSCULOSKELETAL: Denies bone related pain. : Denies dysuria or hematuria. His urine was dark, but has returned to normal. SKIN: Has been yellow, denies significant pruritus. PHYSICAL EXAM Today on exam, this gentleman is noted to be afebrile with a pulse of 62 and regular, respiratory rate of 19, blood pressure recorded at 94/50. His O2 sat on room air was 93%. HEAD, EYES, EARS, NOSE, AND THROAT: He did have scleral icterus, full EOMs. His oral cavity revealed no mucosal surface lesions. There is no adenopathy in his head and neck regions. LUNGS: His lung bolden were clear. He had a normal first and second heart sound without murmurs, rubs or bruits. EXTREMITIES: He has edema of the left arm which has just developed in the past several days and may be related to previous IV infusion. His right arm is unremarkable. ABDOMEN: His abdominal exam revealed ascites. No palpable masses. EXTREMITIES: He has pitting edema bilaterally to his knees. He does not have anasarca. IMPRESSION I have discussed this case with Dr. Willett. I have reviewed the data in the chart documenting his previous investigations including the MRCP, his endoscopy and biopsy results as performed at [facility]. By way of discussion, I have reviewed all of these findings with this gentleman. I have told him that the point of radiation treatment would be to attempt to control the bleeding. He was unable to build up his strength. It is possible that he could be considered for more aggressive care. If not, he would require hospice as previously outlined, but with this treatment, we would hope he would be less symptomatic and as such he would be a very worthwhile palliation. This gentleman does want to proceed with treatment as previously indicated. He will refused blood transfusions for druze reasons and so this was imperative that we start this on emergent basis and we intend to start his treatment today or if there are unexpected problems no later than tomorrow. MD NICOLÁS Pollard/DJCedrick /9:41 AM /10:01 AM
--- NOTE | 2016-03-14 11:19 | HHI.PR ---
Subjective History of Present Illness resting comfortably I am ok for Radiation therapy no n/v good appetite no fever or chills offers no other c/o Vitals/Results Intake & Output 03/13/16 03/13/16 03/14/16 15:00 23:00 07:00 Intake Total 480 ml Output Total 600 ml 600 ml Balance -600 ml -120 ml Intake Oral 480 ml Output Urine Total 600 ml 600 ml # Voids 1 # Bowel Movements 0 0 Vital Signs Vital Signs Date Time Temp Pulse Resp B/P Pulse Ox O2 Delivery O2 Flow Rate FiO2 03/14/16 08:00 98.1 62 19 94/50 93 03/14/16 04:00 63 16 106/48 95 03/14/16 00:00 97.7 64 16 93/50 93 03/13/16 23:00 70 15 108/61 98 Nasal Cannula 2 03/13/16 19:00 63 14 97 Nasal Cannula 2 03/13/16 19:00 98.4 63 14 112/63 97 Nasal Cannula 2 03/13/16 17:50 98.0 58 17 102/58 99 Nasal Cannula 2 03/13/16 15:10 18 99 Room Air 03/13/16 14:50 58 18 98 Nasal Cannula 2 03/13/16 14:42 97.8 58 18 100/58 98 CBC/BMP: 03/13/16 1500 03/13/16 1500 Lab Results Laboratory Tests Test 03/13/16 03/14/16 15:00 07:16 White Blood Count 11.3 TH/MM3 Red Blood Count 1.52 MIL/MM3 Hemoglobin 5.0 GM/DL Hematocrit 17.0 % Mean Corpuscular Volume 112.1 FL Mean Corpuscular Hemoglobin 33.1 PG Mean Corpuscular Hemoglobin 29.5 % Concent Red Cell Distribution Width 29.5 % Platelet Count 286 TH/MM3 Mean Platelet Volume 8.2 FL Neutrophils (%) (Auto) 86.2 % Lymphocytes (%) (Auto) 5.0 % Monocytes (%) (Auto) 7.9 % Eosinophils (%) (Auto) 0.3 % Basophils (%) (Auto) 0.6 % Neutrophils # (Auto) 9.8 TH/MM3 Lymphocytes # (Auto) 0.6 TH/MM3 Monocytes # (Auto) 0.9 TH/MM3 Eosinophils # (Auto) 0.0 TH/MM3 Basophils # (Auto) 0.1 TH/MM3 CBC Comment AUTO DIFF Differential Comment AUTO DIFF CONFIRMED Platelet Estimate NORMAL Platelet Morphology Comment NORMAL Polychromasia 5.0 % Prothrombin Time 11.1 SEC Prothromb Time International 1.0 RATIO Ratio Activated Partial 29.3 SEC Thromboplast Time Sodium Level 132 MEQ/L Potassium Level 4.2 MEQ/L Chloride Level 98 MEQ/L Carbon Dioxide Level 29.2 MEQ/L Anion Gap 5 MEQ/L Blood Urea Nitrogen 15 MG/DL Creatinine 0.59 MG/DL Estimat Glomerular Filtration 137 ML/MIN Rate Random Glucose 110 MG/DL Calcium Level 7.3 MG/DL Protein Corrected Calcium 8.8 MG/DL Total Bilirubin 5.2 MG/DL 5.2 MG/DL Aspartate Amino Transf 67 U/L (AST/SGOT) Alanine Aminotransferase 47 U/L (ALT/SGPT) Alkaline Phosphatase 317 U/L Total Protein 4.4 GM/DL Albumin 1.2 GM/DL Carcinoembryonic Antigen 8.3 NG/ML CA 19-9 Antigen 95.2 U/ML Physical Exam General General Appearance: No Acute Distress, Comfortable Eyes Eye Exam: Extraocular Movement Intact, Jaundice Ears & Nose Ears & Nose Exam: Nasal Mucosa [place] Throat Throat Exam: Oral Mucosa [place] & Moist Neck Neck Exam: Neck Supple, Trachea Midline Pulmonary Resp Exam: Clear Bilaterally, Breath Sounds Equal Cardiology CV Exam: Regular, Normal Sinus Rhythm Gastrointestinal/Abdomen GI Exam: Soft, Non-Tender, Bowel Sounds Present GI Remarks R sided drain in place Integumentary Skin Exam: Warm, Dry Extremeties Extremities Exam: Moderate Edema Neurologic Neuro Exam: Alert, Awake, Oriented, Speech Clear, Moving All Extremities Assessment/Plan Assessment/Plan Assessment and Plan Problem List: (1) severe Anemia (2) Ampullary carcinoma (3) Obstructive jaundice due to cancer s/p percutaneous biliary drain (4) jehovah witness (5) Protein calorie malnutrition (6) Heme positive stool (7) Severe protein calorie malnutrition (8) Ascites ? etiology ?? malignancy vs 3rd spacing d/t hypoalbuminemia . 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 Patient with significant anemia, Jehovah witness, does not permit blood transfusion. Has received Venofer, Procrit. Hemoglobin 5, hematocrit 17. - Venofer infusion - Procrit 20K U qm/w/f - f/u H/H CT of the abdomen noted - Radiation oncology consulted for radiation therapy -S/P right biliary drain -intermittent flushing -Drain currently capped, may need to be placed to gravity for drainage. Ascites and peripheral edema -monitor for now, consider paracentesis /diagnostic if deemed necessary ,will d/ w Dr currie -elevate legs History of prostate cancer, status post radiation at cancer treatment centers of [facility] -Patient has serial PSAs done as outpatient SCDs for DVT prophylaxis Condition guarded, goals of care remain aggressive. will f/u Sukhdeep Nelson MD Mar 14, 2016 11:18
[2016-03-14] MEDS: EPOETIN ALFA 20,000 UNITS/ML VIAL SQ SCH (20:55)
[2016-03-14] MEDS: FAMOTIDINE 20 MG TAB PO SCH (20:55)
[2016-03-14] MEDS: SODIUM CHLORIDE 0.9% 10 ML VIAL OTHER SCH (21:00)
[2016-03-15] VITALS (7 sets, daily range): BP systolic 92–113; BP diastolic 46–65; PULSE 68–72; RESP 18–20; TEMP 97.3–98.9; O2SAT 92–97
[2016-03-15 05:01] LABS: MEAN CELL VOLUME 111.3 FL (80.0-100.0); MEAN CORPUSCULAR HEMOGLOBIN 33.6 PG (27.0-34.0); MEAN CORPUSCULAR HGB CONC 30.2 % (32.0-36.0); PLATELET COUNT 323 TH/MM3 (150-450); RED BLOOD COUNT 1.63 MIL/MM3 (4.50-5.90); RED CELL DISTRIBUTION WIDTH 26.5 % (11.6-17.2); WHITE BLOOD COUNT 10.2 TH/MM3 (4.0-11.0)
[2016-03-15 05:04] LABS: REVIEW FLAG FINAL
[2016-03-15 05:07] LABS: HEMATOCRIT 18.2 % (39.0-51.0)
--- NOTE | 2016-03-15 07:19 | PD.ONC.PN ---
Subjective Subjective Remarks Mr. Mullins reports feeling "better" this AM. He reports his breathing is somewhat improved. He continues to cough. He had a BM this AM and it was green (there was no visible blood). RT was initiated at about 6:30pm last night, he had RT planning early on Saturday. Hemoglobin up to 5.5. Objective Data Date Time Temp Pulse Resp B/P Pulse Ox O2 Delivery O2 Flow Rate FiO2 03/15/16 04:03 98.0 70 19 92/46 92 03/15/16 00:30 98.3 72 18 100/65 96 03/14/16 20:45 99.2 63 18 95/57 96 03/14/16 16:00 98.0 63 18 102/54 97 03/14/16 08:00 98.1 62 19 94/50 93 03/14/16 07:45 64 03/15/16 03/15/16 03/15/16 07:00 15:00 23:00 Intake Total 240 ml Output Total 100 ml Balance 140 ml Result Diagram: 03/15/16 0319 03/13/16 1500 Laboratory Results Laboratory Tests Test 03/14/16 03/14/16 03/15/16 07:16 23:13 03:19 Total Bilirubin 5.2 MG/DL Carcinoembryonic Antigen 8.3 NG/ML CA 19-9 Antigen 95.2 U/ML Hemoglobin 5.2 GM/DL 5.5 GM/DL White Blood Count 10.2 TH/MM3 Red Blood Count 1.63 MIL/MM3 Hematocrit 18.2 % Mean Corpuscular Volume 111.3 FL Mean Corpuscular Hemoglobin 33.6 PG Mean Corpuscular Hemoglobin 30.2 % Concent Red Cell Distribution Width 26.5 % Platelet Count 323 TH/MM3 Mean Platelet Volume 8.2 FL Administered Medications Medications (Trade) Dose Ordered Sig/Zackary Route PRN Reason Start Time Stop Time Status Last Admin Dose Admin IV Flush 2 ml 2 ml BID FLUSH 03/13/16 21:00 03/14/16 20:55 Iron Sucrose/ Sodium Chloride (Venofer Inj/NS Inj) 105 ml @ 105 mls/hr DAILY IV 03/13/16 22:00 03/15/16 09:59 03/14/16 10:14 Epoetin Den (Epogen Inj) 20,000 units MoWeFr SQ 03/14/16 20:00 03/14/16 20:55 Sodium Chloride (NS Inj) 5 ml BID OTHER 03/14/16 21:00 03/14/16 21:00 Famotidine (Pepcid) 20 mg BID PO 03/14/16 21:00 03/14/16 20:55 Objective Remarks GENERAL APPEARANCE: Mr. Mullins is an elderly male. He is tall, pale and jaundiced appearing. He is sitting up in bed and is in no apparent distress. HEENT: Head atraumatic, normocephalic, conjunctive are pale, sclerae are icteric, EOMI, PERRLA, oral exam no pharyngeal erythema. NECK: No palpable cervical or supraclavicular lymphadenopathy. RESPIRATORY: Decreased bibasilar breath sounds with dullness to percussion, good air movement on anterior exam over the upper and middle lung zones. CARDIOVASCULAR: Regular rhythm, S1-S2. No obvious murmurs, rubs or gallops. ABDOMEN: Belly is distended. He is generally thin. There is some cutaneous edema identified. No palpable organ enlargement is appreciated. EXTREMITIES: Bilateral pretibial edema, no calf tenderness. He does have tenderness over the tibia, specifically over the left superior anterior aspect of the tibia. 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 Assessment/Plan Assessment Mr. 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 The patient initially presented several weeks ago with loss of appetite and obstructive jaundice. An inpatient workup at [facility] which included an MRCP, CT of the abdomen and pelvis as well as an EGD revealed a large ampullary mass resulting in common bile duct obstruction with resultant dilatation of the pancreatic duct and extra- and intrahepatic bile ducts. An ERCP could not identify the orifice of the common bile duct and, therefore, percutaneous drain had to be placed for management of the hyperbilirubinemia. Over the course of his hospitalization, the patient became increasingly anemic secondary to GI losses ( stool guaiac for blood positive) the etiology of which was thought to be iron deficiency anemia. Because he is a Jewish, he was treated with intravenous iron and Epogen support. Per the patient and his family, they were recommended best supportive care/Hospice level of care and wish to seek out second opinion. They therefore presented to [facility] directly after being discharged from [facility] in [facility]. Plan 1. Ampullary mass: Radiation to the primary tumor has been initiated, he will likely need between 5-10 fractions. Will monitor him from day to day. 2. Anemia: IV iron and EPO. Limit blood draws. Every other day draws are reasonable if he appears to be doing well clinically in the absence of overt bleeding. 3. Nutrition: Diet changed to regular. 4. Pleural effusions: Given low H&H at this time, I would not recommend thoracentesis. Symptomatic management. His O2 sats are in the mid 90's on 2 L NC. 5. Percutaneous biliary tube: Nursing staff have instructions on flushing the tubes. There has been some oozing from the site of insertion, bandages are being changed frequently and the area is being kept as dry as possible. I have ordered bacitracin ointment to the area as well. 6. Biliary obstruction: T. Bili level is stable. I expect the radiation to result in some decrease in size of the tumor and this should help drainage. Disposition: Continue RT. Limit blood draws. Pt advised to keep ambulating and eating the best he can. Continue IV Iron and EPO. Trevor Willett MD Mar 15, 2016 07:19
[2016-03-15] MEDS: SODIUM CHLORIDE 0.9% FLUSH 5 ML FLUSH FLUSH SCH ×2 (09:17→20:47)
[2016-03-15] MEDS: FAMOTIDINE 20 MG TAB PO SCH ×2 (09:19→20:46)
[2016-03-15] MEDS: IRON SUCROSE INJ 100 MG in SODIUM CHLORIDE 0.9% INJ 100 ML IV SCH (09:19)
[2016-03-15] MEDS: SODIUM CHLORIDE 0.9% 10 ML VIAL OTHER SCH ×2 (10:20→20:48)
--- NOTE | 2016-03-15 16:51 | HHI.PR ---
Subjective History of Present Illness I am ok In good spirits No N/V appetite is better No fever or chills no cough or sputum offers no other c/o Vitals/Results Intake & Output 03/14/16 03/14/16 03/15/16 15:00 23:00 07:00 Intake Total 240 ml 240 ml Output Total 30 ml 100 ml Balance 210 ml 140 ml Intake Oral 240 ml 240 ml Drainage Total 30 ml 100 ml # Voids 4 2 2 # Bowel Movements 0 0 1 Vital Signs Vital Signs Date Time Temp Pulse Resp B/P Pulse Ox O2 Delivery O2 Flow Rate FiO2 03/15/16 11:30 98.5 69 20 103/55 93 03/15/16 08:00 97.5 69 20 105/54 97 03/15/16 04:03 98.0 70 19 92/46 92 03/15/16 00:30 98.3 72 18 100/65 96 03/14/16 20:45 99.2 63 18 95/57 96 CBC/BMP: 03/15/16 0319 03/13/16 1500 Lab Results Laboratory Tests Test 03/14/16 03/15/16 23:13 03:19 Hemoglobin 5.2 GM/DL 5.5 GM/DL White Blood Count 10.2 TH/MM3 Red Blood Count 1.63 MIL/MM3 Hematocrit 18.2 % Mean Corpuscular Volume 111.3 FL Mean Corpuscular Hemoglobin 33.6 PG Mean Corpuscular Hemoglobin 30.2 % Concent Red Cell Distribution Width 26.5 % Platelet Count 323 TH/MM3 Mean Platelet Volume 8.2 FL Physical Exam General General Appearance: No Acute Distress, Comfortable Eyes Eye Exam: Pupils Equal, Extraocular Movement Intact, Jaundice Ears & Nose Ears & Nose Exam: Nasal Mucosa [place] Throat Throat Exam: Oral Mucosa [place] & Moist Neck Neck Exam: Neck Supple, Trachea Midline Pulmonary Resp Exam: Clear Bilaterally, Breath Sounds Equal, No Distress Cardiology CV Exam: Regular, Normal Sinus Rhythm Gastrointestinal/Abdomen GI Exam: Soft, Bowel Sounds Present GI Remarks R sided drain in place Integumentary Skin Exam: Warm, Dry Extremeties Extremities Exam: Pedal Pulses Palpable Extremeties Remarks mild pedal edema b/l lower ext Neurologic Neuro Exam: Alert, Awake, Oriented, Speech Clear, Moving All Extremities Psychiatric Psych Exam: Appropriate Responses VTE Prophylaxis VTE Prophylaxis Device: SCDs PUD Prophylasis PUD Prophylaxis: Protonix Assessment/Plan Assessment/Plan Assessment and Plan Problem List: (1) severe Anemia (2) Ampullary carcinoma (3) Obstructive jaundice due to cancer s/p percutaneous biliary drain (4) jehovah witness (5) Protein calorie malnutrition (6) Heme positive stool (7) Severe protein calorie malnutrition (8) Ascites ? etiology ?? malignancy vs 3rd spacing d/t hypoalbuminemia . 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 Patient with significant anemia, Jehovah witness, does not permit blood transfusion. Has received Venofer, Procrit. Hemoglobin 5, hematocrit 17. - Venofer infusion - Procrit 20K U qm/w/f - f/u H/H CT of the abdomen noted - s/p 2nd Radiation treatment today -S/P right biliary drain -intermittent flushing -Drain care . Ascites and peripheral edema -monitor for now, consider paracentesis /diagnostic when coynts are better - D/w Dr currie -elevate legs History of prostate cancer, status post radiation at cancer treatment centers of [facility] -Patient has serial PSAs done as outpatient SCDs for DVT prophylaxis Condition guarded, goals of care remain aggressive. will f/u Sukhdeep Nelson MD Mar 15, 2016 16:51
[2016-03-16] VITALS (8 sets, daily range): BP systolic 99–113; BP diastolic 50–60; PULSE 62–73; RESP 16–18; TEMP 96–99.5; O2SAT 93–97
--- NOTE | 2016-03-16 07:17 | PD.ONC.PN ---
Subjective Subjective Remarks Mr. Mullins denies acute complaints, reports having had a "good" day yesterday. Reports his appetite is good, denies pain, biliary drain has stopped leaking, had a BM yesterday with was better formed and green in color. Had his 2nd fraction of RT on 03/15. He continues to have swelling and cough. Objective Data Date Time Temp Pulse Resp B/P Pulse Ox O2 Delivery O2 Flow Rate FiO2 03/16/16 04:15 98.0 69 17 111/55 94 03/16/16 00:05 98.2 68 18 113/56 95 03/15/16 20:20 71 03/15/16 20:15 98.9 68 18 102/53 97 03/15/16 16:00 97.3 68 18 113/61 92 03/15/16 11:30 98.5 69 20 103/55 93 03/15/16 08:00 97.5 69 20 105/54 97 03/16/16 03/16/16 03/16/16 07:00 15:00 23:00 Intake Total 240 ml Output Total 600 ml Balance -360 ml Result Diagram: 03/15/16 0319 03/13/16 1500 Administered Medications Medications (Trade) Dose Ordered Sig/Zackary Route PRN Reason Start Time Stop Time Status Last Admin Dose Admin IV Flush (NS Flush) 2 ml BID FLUSH 03/13/16 21:00 03/15/16 20:47 Epoetin Den (Epogen Inj) 20,000 units MoWeFr SQ 03/14/16 20:00 03/14/16 20:55 Sodium Chloride (NS Inj) 5 ml BID OTHER 03/14/16 21:00 03/15/16 20:48 Famotidine (Pepcid) 20 mg BID PO 03/14/16 21:00 03/15/16 20:46 Objective Remarks GENERAL APPEARANCE: Mr. Mullins is an elderly male. He is tall, pale and jaundiced appearing. He is sitting up in bed and is in no apparent distress. HEENT: Head atraumatic, normocephalic, conjunctive are pale, sclerae are icteric, EOMI, PERRLA, oral exam no pharyngeal erythema. NECK: No palpable cervical or supraclavicular lymphadenopathy. RESPIRATORY: Decreased bibasilar breath sounds with dullness to percussion, good air movement on anterior exam over the upper and middle lung zones. CARDIOVASCULAR: Regular rhythm, S1-S2. No obvious murmurs, rubs or gallops. ABDOMEN: Belly is distended. He is generally thin. There is some cutaneous edema identified. No palpable organ enlargement is appreciated. EXTREMITIES: Bilateral pretibial edema, no calf tenderness. He does have tenderness over the tibia, specifically over the left superior anterior aspect of the tibia. 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 Assessment/Plan Assessment Mr. 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 The patient initially presented several weeks ago with loss of appetite and obstructive jaundice. An inpatient workup at [facility] which included an MRCP, CT of the abdomen and pelvis as well as an EGD revealed a large ampullary mass resulting in common bile duct obstruction with resultant dilatation of the pancreatic duct and extra- and intrahepatic bile ducts. An ERCP could not identify the orifice of the common bile duct and, therefore, percutaneous drain had to be placed for management of the hyperbilirubinemia. Over the course of his hospitalization, the patient became increasingly anemic secondary to GI losses ( stool guaiac for blood positive) the etiology of which was thought to be iron deficiency anemia. Because he is a Hinduism, he was treated with intravenous iron and Epogen support. Per the patient and his family, they were recommended best supportive care/Hospice level of care and wish to seek out second opinion. They therefore presented to [facility] directly after being discharged from [facility] in [facility]. Plan 1. Ampullary mass: Radiation to the primary tumor has been initiated, he will likely need between 5-10 fractions. Will monitor him from day to day. 2. Anemia: IV iron and EPO. Limit blood draws. Every other day draws are reasonable if he appears to be doing well clinically in the absence of overt bleeding. 3. Nutrition: Diet changed to regular. 4. Pleural effusions: Given low H&H at this time, I would not recommend thoracentesis. Symptomatic management. His O2 sats are in the mid 90's on 2 L NC. 5. Percutaneous biliary tube: Nursing staff have instructions on flushing the tubes. There has been some oozing from the site of insertion, bandages are being changed frequently and the area is being kept as dry as possible. I have ordered bacitracin ointment to the area as well. 6. Biliary obstruction: T. Bili level is stable. I expect the radiation to result in some decrease in size of the tumor and this should help drainage. Disposition: Continue RT. Limit blood draws. Pt advised to keep ambulating and eating the best he can. Continue IV Iron and EPO. Trevor Willett MD Mar 16, 2016 07:16
[2016-03-16] MEDS: FAMOTIDINE 20 MG TAB PO SCH ×2 (07:35→20:03)
[2016-03-16] MEDS: FOLIC ACID 1 MG TAB PO SCH (07:40)
[2016-03-16] MEDS: IRON SUCROSE INJ 100 MG in SODIUM CHLORIDE 0.9% INJ 100 ML IV SCH (12:25)
--- NOTE | 2016-03-16 16:49 | HHI.PR ---
Subjective History of Present Illness No acute pain anxious talkative No N/V appetite fair, orders his own food. No fever or chills cough with thick sputum X 1 while in going for radiation today. Hospital Day: 4 Subjective Remarks Im doing ok, but with some diarrhea Review of Systems Constitutional Constitutional: Weakness Constitutional Remarks In point ROS done positives noted. R biliary drain, anxiety, cough. Other systems otherwise negative Pulmonary Respiratory: Coughing GI/Abdomen GI/Abdominal Exam: Positive Bowel Movement, Diarrhea Hematologic/Lymphatic Heme/Lymph Remarks biliary drain Psychiatric Psychiatric: Anxiety Vitals/Results Intake & Output 03/15/16 03/15/16 03/16/16 15:00 23:00 07:00 Intake Total 1200 ml 480 ml 240 ml Output Total 410 ml 600 ml Balance 1200 ml 70 ml -360 ml Intake Oral 1200 ml 480 ml 240 ml Output Urine Total 250 ml 400 ml Drainage Total 160 ml 200 ml # Voids 2 # Bowel Movements 0 1 1 Vital Signs Vital Signs Date Time Temp Pulse Resp B/P Pulse Ox O2 Delivery O2 Flow Rate FiO2 03/16/16 12:00 98.3 64 16 99/59 97 03/16/16 08:00 96.0 64 16 100/60 95 03/16/16 07:25 62 03/16/16 04:15 98.0 69 17 111/55 94 03/16/16 00:05 98.2 68 18 113/56 95 03/15/16 20:20 71 03/15/16 20:15 98.9 68 18 102/53 97 CBC/BMP: 03/15/16 0319 03/13/16 1500 Lab Results Active Medications Bacitracin (Baciguent Oint) 1 applic Q8HR TOP; Start 03/16/16 at 14:00 Folic Acid (Folate) 1 mg DAILY PO Last administered on 03/16/16 07:40; Admin Dose 1 MG; Start 03/16/16 at 09:00 Iron Sucrose/ Sodium Chloride (Venofer Inj/NS Inj) 105 ml @ 105 mls/hr DAILY IV Last administered on 03/16/16 12:25; Admin Dose 105 MLS/HR; Start 03/16/16 at 09:00; Stop 03/18/16 at 09:59 Imaging Remarks Last Impressions Abdomen/Pelvis CT 03/13/16 1505 Signed Impressions: Service Date/Time: Sunday, March 13, 2016 17:24 - CONCLUSION: Percutaneous biliary stent in place with air in the bile ducts with maximum width of the common duct 1.2 cm. Cystic dilatation of pancreatic duct. There is a history of apparently of an ampullary carcinoma. There is ascitic fluid throughout the abdomen and pelvis. Bilateral pleural effusions noted with compressive atelectasis in the posterior segments of the lower lobes Reddy Wolf MD Current Medications Active Medications Bacitracin (Baciguent Oint) 1 applic Q8HR TOP; Start 03/16/16 at 14:00 Folic Acid (Folate) 1 mg DAILY PO Last administered on 03/16/16 07:40; Admin Dose 1 MG; Start 03/16/16 at 09:00 Iron Sucrose/ Sodium Chloride (Venofer Inj/NS Inj) 105 ml @ 105 mls/hr DAILY IV Last administered on 03/16/16 12:25; Admin Dose 105 MLS/HR; Start 03/16/16 at 09:00; Stop 03/18/16 at 09:59 Physical Exam General General Appearance: No Acute Distress, Comfortable Eyes Eye Exam: Extraocular Movement Intact, Jaundice Ears & Nose Ears & Nose Exam: Nasal Mucosa [place] Throat Throat Exam: Oral Mucosa [place] & Moist Neck Neck Exam: Neck Supple, Trachea Midline Pulmonary Resp Exam: Clear Bilaterally, Breath Sounds Equal Cardiology CV Exam: Regular, Normal Sinus Rhythm Gastrointestinal/Abdomen GI Exam: Soft, Non-Tender, Bowel Sounds Present Integumentary Skin Exam: Warm, Dry Extremeties Extremities Exam: Moderate Edema Neurologic Neuro Exam: Alert, Awake, Oriented, Speech Clear, Moving All Extremities Psychiatric Psych Exam: Appropriate Responses VTE Prophylaxis VTE Prophylaxis Device: SCDs PUD Prophylasis PUD Prophylaxis: Protonix Assessment/Plan Assessment/Plan Assessment and Plan Problem List: (1) severe Anemia (2) Ampullary carcinoma (3) Obstructive jaundice due to cancer s/p percutaneous biliary drain (4) jehovah witness (5) Protein calorie malnutrition (6) Heme positive stool (7) Severe protein calorie malnutrition (8) Ascites ? etiology ?? malignancy vs 3rd spacing d/t hypoalbuminemia . 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 Patient with significant anemia, Jehovah witness, does not permit blood transfusion. - Venofer infusion - Procrit 20K U qm/w/f - No labs unless patient is having a complication. Jehovah witness. Refuse blood products. - s/p Radiation treatment today this p.m. biliary dressing change just before leaving. Up in wheelchair. - right biliary draining with issues. clear fluid -intermittent flushing -Drain care . Ascites and peripheral edema -monitor for now, consider paracentesis /diagnostic when coynts are better - D/w Dr currie -elevate legs History of prostate cancer, status post radiation at cancer treatment centers of [facility] -Patient has serial PSAs done as outpatient SCDs for DVT prophylaxis Condition guarded, goals of care remain aggressive per patient and with request Supportive care to patient and family. will f/u Discussed Condition with: Patient, Spouse Angélica Medina Mar 16, 2016 16:49
[2016-03-16] MEDS: EPOETIN ALFA 20,000 UNITS/ML VIAL SQ SCH (20:03)
[2016-03-16] MEDS: SODIUM CHLORIDE 0.9% FLUSH 5 ML FLUSH FLUSH SCH (20:10)
[2016-03-16] MEDS: SODIUM CHLORIDE 0.9% 10 ML VIAL OTHER SCH (20:11)
[2016-03-16] MEDS: BACITRACIN TOP OINT 15 GM TUBE TOP SCH (20:13)
[2016-03-17] VITALS (7 sets, daily range): BP systolic 89–114; BP diastolic 50–57; PULSE 64–76; RESP 16–20; TEMP 97.7–99.5; O2SAT 92–98
[2016-03-17] MEDS: BACITRACIN TOP OINT 15 GM TUBE TOP SCH ×3 (06:00→21:10)
[2016-03-17] MEDS: SODIUM CHLORIDE 0.9% 10 ML VIAL OTHER SCH ×2 (09:00→21:00)
[2016-03-17] MEDS: FAMOTIDINE 20 MG TAB PO SCH ×2 (09:33→21:00)
[2016-03-17] MEDS: FOLIC ACID 1 MG TAB PO SCH (09:33)
[2016-03-17] MEDS: SODIUM CHLORIDE 0.9% FLUSH 5 ML FLUSH FLUSH SCH ×2 (09:34→21:02)
[2016-03-17] MEDS: IRON SUCROSE INJ 100 MG in SODIUM CHLORIDE 0.9% INJ 100 ML IV SCH (09:35)
--- NOTE | 2016-03-17 10:12 | PD.ONC.PN ---
Subjective Subjective Remarks Denies acute complaints, reports appetite is good, continues to have a cough; dry. Denies fevers/chills or pain. Had a brown colored BM yesterday. Tells me he was out of bed yesterday to chair. Objective Data Date Time Temp Pulse Resp B/P Pulse Ox O2 Delivery O2 Flow Rate FiO2 03/17/16 08:31 67 03/17/16 07:33 98.0 67 16 89/51 92 03/17/16 03:59 98.4 68 20 100/50 94 03/17/16 00:00 98.8 70 16 112/52 96 03/16/16 20:10 99.5 73 16 112/54 97 03/16/16 20:00 64 03/16/16 16:00 99.3 68 16 109/50 93 03/16/16 12:00 98.3 64 16 99/59 97 03/17/16 03/17/16 03/17/16 07:00 15:00 23:00 Intake Total 240 ml Output Total 625 ml Balance -385 ml Result Diagram: 03/15/169 03/13/16 1500 Administered Medications Medications (Trade) Dose Ordered Sig/Zackary Route PRN Reason Start Time Stop Time Status Last Admin Dose Admin IV Flush (NS Flush) 2 ml BID FLUSH 03/13/16 21:00 03/17/16 09:34 Epoetin Den (Epogen Inj) 20,000 units MoWeFr SQ 03/14/16 20:00 03/16/16 20:03 Sodium Chloride (NS Inj) 5 ml BID OTHER 03/14/16 21:00 03/17/16 09:00 Famotidine 20 mg 20 mg BID PO 03/14/16 21:00 03/17/16 09:33 Iron Sucrose/ Sodium Chloride (Venofer Inj/NS Inj) 105 ml @ 105 mls/hr DAILY IV 03/16/16 09:00 03/18/16 09:59 03/17/16 09:35 Folic Acid (Folate) 1 mg DAILY PO 03/16/16 09:00 03/17/16 09:33 Bacitracin (Baciguent Oint) 1 applic Q8HR TOP 03/16/16 14:00 03/17/16 06:00 Objective Remarks GENERAL APPEARANCE: Mr. Mullins is an elderly male. He is tall, pale and jaundiced appearing. He is sitting up in bed and is in no apparent distress. HEENT: Head atraumatic, normocephalic, conjunctive are pale, sclerae are icteric, EOMI, PERRLA, oral exam no pharyngeal erythema. NECK: No palpable cervical or supraclavicular lymphadenopathy. RESPIRATORY: Decreased bibasilar breath sounds with dullness to percussion, good air movement on anterior exam over the upper and middle lung zones. CARDIOVASCULAR: Regular rhythm, S1-S2. No obvious murmurs, rubs or gallops. ABDOMEN: Belly is distended. He is generally thin. There is some cutaneous edema identified. No palpable organ enlargement is appreciated. EXTREMITIES: Bilateral pretibial edema, no calf tenderness. He does have tenderness over the tibia, specifically over the left superior anterior aspect of the tibia. Left upper extremity edema. FIELD TECHNICAL SPECIALIST: No focal sensory motor deficits. Assessment/Plan Assessment Mr. 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 The patient initially presented several weeks ago with loss of appetite and obstructive jaundice. An inpatient workup at [facility] which included an MRCP, CT of the abdomen and pelvis as well as an EGD revealed a large ampullary mass resulting in common bile duct obstruction with resultant dilatation of the pancreatic duct and extra- and intrahepatic bile ducts. An ERCP could not identify the orifice of the common bile duct and, therefore, percutaneous drain had to be placed for management of the hyperbilirubinemia. Over the course of his hospitalization, the patient became increasingly anemic secondary to GI losses ( stool guaiac for blood positive) the etiology of which was thought to be iron deficiency anemia. Because he is a Hinduism, he was treated with intravenous iron and Epogen support. Per the patient and his family, they were recommended best supportive care/Hospice level of care and wish to seek out second opinion. They therefore presented to [facility] directly after being discharged from [facility] in [facility]. Plan 1. Ampullary mass: External Beam Radiation to the primary tumor has been initiated, he will likely need between 5-10 fractions (3rd fraction on 02/13/17) . Will monitor him from day to day. 2. Anemia: IV iron and EPO (Mondays/Sat/Saturday). Limit blood draws. Every other day draws are reasonable if he appears to be doing well clinically in the absence of overt bleeding. 3. Nutrition: Diet changed to regular. 4. Pleural effusions: Given low H&H at this time, I would not recommend thoracentesis. Symptomatic management. His O2 sats are in the mid 90's on 2 L NC. 5. Percutaneous biliary tube: Nursing staff have instructions on flushing the tubes. There has been some oozing from the site of insertion, bandages are being changed frequently and the area is being kept as dry as possible. I have ordered bacitracin ointment to the area as well. 6. Biliary obstruction: T. Bili level is stable. I expect the radiation to result in some decrease in size of the tumor and this should help drainage. Disposition: Continue RT. Limit blood draws. Pt advised to keep ambulating and eating the best he can. Continue IV Iron and EPO. I have ordered labs for 03/19/16 AM. Left upper ext swelling: Suspect thrombosis. I have not ordered an US doppler b/c anticoagulation would be contraindicated given his GI bleeding and severe anemia. Trevor Willett MD Mar 17, 2016 10:12
--- NOTE | 2016-03-17 15:03 | HHI.PR ---
Subjective Subjective Remarks sitting up, feels better, in good spirits no SOB unless inc. activity no cp appetite very good, eating well no n/v had BM bili drain to gravity, output 300 overnight oozing some around site, dressing changed per nursing x 3 no fever at bsd Review of Systems Constitutional Constitutional: Weakness Constitutional Remarks 12 point ROS completed, neg. except as noted above Pulmonary Respiratory: Coughing GI/Abdomen GI/Abdominal Exam: Positive Bowel Movement, Diarrhea Psychiatric Psychiatric: Anxiety Vitals/Results Intake & Output 03/16/16 03/16/16 03/17/16 15:00 23:00 07:00 Intake Total 480 ml 480 ml 240 ml Output Total 120 ml 550 ml 625 ml Balance 360 ml -70 ml -385 ml Intake Oral 480 ml 480 ml 240 ml Output Urine Total 200 ml 450 ml Drainage Total 120 ml 350 ml 175 ml # Voids 3 # Bowel Movements 0 Vital Signs Vital Signs Date Time Temp Pulse Resp B/P Pulse Ox O2 Delivery O2 Flow Rate FiO2 03/17/16 11:44 97.7 64 16 107/55 96 03/17/16 08:31 67 03/17/16 07:33 98.0 67 16 89/51 92 03/17/16 03:59 98.4 68 20 100/50 94 03/17/16 00:00 98.8 70 16 112/52 96 03/16/16 20:10 99.5 73 16 112/54 97 03/16/16 20:00 64 03/16/16 16:00 99.3 68 16 109/50 93 CBC/BMP: 03/15/16 0319 03/13/16 1500 Physical Exam General General Appearance: No Acute Distress, Comfortable, Pale, Malnourished Eyes Eye Exam: Pupils Equal, Pupils Reactive, Extraocular Movement Intact, Jaundice Ears & Nose Ears & Nose Exam: Nasal Mucosa [place] Throat Throat Exam: Oral Mucosa [place] & Moist Neck Neck Exam: Neck Supple, Trachea Midline Pulmonary Resp Exam: Clear Bilaterally, Breath Sounds Equal Cardiology CV Exam: Regular, Normal Sinus Rhythm Gastrointestinal/Abdomen GI Exam: Soft, Non-Tender, Bowel Sounds Present, Positive Bowel Movement, Distended GI Remarks Right upper quadrant biliary drain with green output Musculoskeletal MS Exam: Joints Intact Integumentary Skin Exam: Warm, Dry Extremeties Extremities Exam: Moderate Edema Neurologic Neuro Exam: Alert, Awake, Oriented, Speech Clear, Moving All Extremities, No Focal Deficits Psychiatric Psych Exam: Appropriate Responses VTE Prophylaxis VTE Prophylaxis Device: SCDs PUD Prophylasis PUD Prophylaxis: Protonix Assessment/Plan Problem List: (1) Anemia (2) Ampullary carcinoma (3) History of prostate cancer (4) Obstructive jaundice due to cancer (5) Protein calorie malnutrition (6) Heme positive stool (7) percutaneous biliary drain (8) Ascites (9) Pleural effusion Assessment/Plan 65-year-old male with recent findings of ampullary mass, bx findings of 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 Patient with significant anemia, Jehovah witness, does not permit blood transfusion. CT abdomen and pelvis done with results as noted. - Venofer infusion - Procrit 20K U qm/w/f - No labs unless patient is having a complication. Jehovah witness. Refuse blood products. -HH on Saturday per onc. - s/p 3rd Radiation treatment, will resume on Saturday -appreciate oncology and rad. oncology input. Bilat pleural effusions -monitor for now -can't tap due to low HH Right biliary draining -Monitor output -IR evaluated, -intermittent flushing -Drain care . -T bili elevated Ascites and peripheral edema -monitor for now, consider paracentesis /diagnostic when HH is better -low albumin -elevate legs History of prostate cancer, status post radiation at cancer treatment centers of [facility] -Patient has serial PSAs done as outpatient SCDs for DVT prophylaxis Condition guarded, goals of care remain aggressive per patient and Supportive care to patient and family. D/W RN D/W pt. and , questions answered in detail D/W Dr. Yanez This patient was seen by myself and Dr. Yanez, this note is written on his behalf. Problem Qualifiers (1) Anemia: Qualified Code: D64.9 - Anemia, unspecified type (2) Ascites: Qualified Code: R18.8 - Other ascites Rina Grier Mar 17, 2016 15:03
[2016-03-18] VITALS (9 sets, daily range): BP systolic 108–130; BP diastolic 55–63; PULSE 59–72; RESP 16–18; TEMP 97.2–99.5; O2SAT 92–98
[2016-03-18] MEDS: guaiFENesin SOLUTION 200 MG/10 ML CUP PO PRN ×2 (04:41→21:15)
[2016-03-18] MEDS: BACITRACIN TOP OINT 15 GM TUBE TOP SCH ×3 (06:00→21:19)
--- NOTE | 2016-03-18 08:28 | PD.ONC.PN ---
Subjective Subjective Remarks Afebrile overnight. Patient states his biliary drain is draining much better today now that the bag has been changed. He denies pain. He denies bleeding. He is in very good spirits. Objective Data Date Time Temp Pulse Resp B/P Pulse Ox O2 Delivery O2 Flow Rate FiO2 03/18/16 05:02 59 03/18/16 04:00 98.9 67 16 113/60 97 03/18/16 00:00 98.5 72 16 119/63 96 03/17/16 21:00 Room Air 03/17/16 20:00 99.5 76 16 93/52 93 03/17/16 15:45 97.9 66 16 114/57 98 03/17/16 11:44 97.7 64 16 107/55 96 03/17/16 08:31 67 03/18/16 03/18/16 03/18/16 07:00 15:00 23:00 Intake Total 480 ml Output Total 1480 ml Balance -1000 ml Result Diagram: 03/15/16 0319 Administered Medications Medications (Trade) Dose Ordered Sig/Zackary Route PRN Reason Start Time Stop Time Status Last Admin Dose Admin IV Flush (NS Flush) 2 ml BID FLUSH 03/13/16 21:00 03/17/16 21:02 Epoetin Den (Epogen Inj) 20,000 units MoWeFr SQ 03/14/16 20:00 03/16/16 20:03 Sodium Chloride (NS Inj) 5 ml BID OTHER 03/14/16 21:00 03/17/16 21:00 Famotidine 20 mg 20 mg BID PO 03/14/16 21:00 03/17/16 09:33 Iron Sucrose/ Sodium Chloride (Venofer Inj/NS Inj) 105 ml @ 105 mls/hr DAILY IV 03/16/16 09:00 03/18/16 09:59 03/17/16 09:35 Folic Acid (Folate) 1 mg DAILY PO 03/16/16 09:00 03/17/16 09:33 Bacitracin (Baciguent Oint) 1 applic Q8HR TOP 03/16/16 14:00 03/17/16 14:00 Guaifenesin (Robitussin Liq) 200 mg Q4H PRN PO COUGH 03/18/16 02:30 03/18/16 04:41 Objective Remarks GENERAL: Middle aged male, thin, very cheerful, sitting up in bed watching TV SKIN: Warm and dry. no bleeding from peripheral IV, right upper extremity. HEAD: Normocephalic. EYES: No injection or drainage. NECK: Supple, trachea midline. CARDIOVASCULAR: Regular rate and rhythm RESPIRATORY: Breath sounds equal bilaterally. No accessory muscle use. GASTROINTESTINAL: Abdomen thin, biliary drain in place, right side, draining yellow fluid. soft, non-tender, nondistended. EXTREMITIES: No cyanosis. left arm is swollen, but non-tender, no erythema. NEUROLOGICAL: awake and alert, normal speech. moving all extremities. Assessment/Plan Assessment Mr. 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 The patient initially presented several weeks ago with loss of appetite and obstructive jaundice. An inpatient workup at [facility] which included an MRCP, CT of the abdomen and pelvis as well as an EGD revealed a large ampullary mass resulting in common bile duct obstruction with resultant dilatation of the pancreatic duct and extra- and intrahepatic bile ducts. An ERCP could not identify the orifice of the common bile duct and, therefore, percutaneous drain had to be placed for management of the hyperbilirubinemia. Over the course of his hospitalization, the patient became increasingly anemic secondary to GI losses ( stool guaiac for blood positive) the etiology of which was thought to be iron deficiency anemia. Because he is a Restorationist, he was treated with intravenous iron and Epogen support. Per the patient and his family, they were recommended best supportive care/Hospice level of care and wish to seek out second opinion. They therefore presented to [facility] directly after being discharged from [facility] in [facility]. Plan 1. Ampullary mass: External Beam Radiation to the primary tumor has been initiated, he will likely need between 5-10 fractions (3rd fraction on 03/16/16) . Will monitor him from day to day. XRT will resume Saturday. 2. Anemia: IV iron and EPO (Mondays/Sat/Saturday). Limit blood draws. Every other day draws are reasonable if he appears to be doing well clinically in the absence of overt bleeding. labs have been ordered for 03/19/16 3. Nutrition: continue regular diet. 4. Pleural effusions: Given low H&H at this time, I would not recommend thoracentesis. Symptomatic management. O2 sats >90% on room air at this time. 5. Percutaneous biliary tube: 1100cc drainage/24hours. Bacitracin ointment to area. 6. Biliary obstruction: T. Bili level is stable. I expect the radiation to result in some decrease in size of the tumor and this should help drainage. will check bili 03/19/16 Attending Statement The exam, history, and the medical decision-making described in the above note were completed with the assistance of the mid-level provider. I reviewed and agree with the findings presented. I attest that I had a [id number] encounter with the patient on the same day, and personally performed and documented my assessment and findings in the medical record. Mr. Mullins was seen and examined. He reports his cough is improved. He continues to eat well. The biliary drain is draining well. He feels well/improved overall. Remains on IV Iron and EPO. Repeat labs ordered for 03/19. Clinically he remains pale and icteric. There are no signs of overt bleeding. Wen Medrano Mar 18, 2016 08:28 Trevor Willett MD Mar 18, 2016 11:59
[2016-03-18] MEDS: SODIUM CHLORIDE 0.9% 10 ML VIAL OTHER SCH ×2 (09:00→21:18)
[2016-03-18] MEDS: SODIUM CHLORIDE 0.9% FLUSH 5 ML FLUSH FLUSH SCH ×2 (09:49→21:18)
[2016-03-18] MEDS: FOLIC ACID 1 MG TAB PO SCH (09:50)
[2016-03-18] MEDS: IRON SUCROSE INJ 100 MG in SODIUM CHLORIDE 0.9% INJ 100 ML IV SCH (09:50)
[2016-03-18] MEDS: FAMOTIDINE 20 MG TAB PO SCH ×2 (09:50→21:16)
--- NOTE | 2016-03-18 12:43 | HHI.PR ---
Subjective Subjective Remarks sitting up, feels better, in good spirits no SOB unless inc. activity no cp eating well no n/v had BM yesterday bili drain to gravity, output 1105 overnight no fever at bsd Review of Systems Constitutional Constitutional: Weakness Constitutional Remarks 12 point ROS completed, neg. except as noted above Pulmonary Respiratory: Coughing GI/Abdomen GI/Abdominal Exam: Positive Bowel Movement, Diarrhea Psychiatric Psychiatric: Anxiety Vitals/Results Intake & Output 03/17/16 03/17/16 03/18/16 15:00 23:00 07:00 Intake Total 720 ml 480 ml 480 ml Output Total 300 ml 575 ml 1480 ml Balance 420 ml -95 ml -1000 ml Intake Oral 720 ml 480 ml 480 ml Output Urine Total 350 ml 900 ml Drainage Total 300 ml 225 ml 580 ml # Voids 3 # Bowel Movements 1 Vital Signs Vital Signs Date Time Temp Pulse Resp B/P Pulse Ox O2 Delivery O2 Flow Rate FiO2 03/18/16 08:30 92 Room Air 03/18/16 08:30 63 03/18/16 08:00 98.3 63 18 130/60 92 03/18/16 05:02 59 03/18/16 04:00 98.9 67 16 113/60 97 03/18/16 00:00 98.5 72 16 119/63 96 03/17/16 21:00 Room Air 03/17/16 20:00 99.5 76 16 93/52 93 03/17/16 15:45 97.9 66 16 114/57 98 CBC/BMP: 03/15/16 0319 Physical Exam General General Appearance: No Acute Distress, Comfortable, Pale, Malnourished Eyes Eye Exam: Pupils Equal, Pupils Reactive, Extraocular Movement Intact, Jaundice Ears & Nose Ears & Nose Exam: Nasal Mucosa [place] Throat Throat Exam: Oral Mucosa [place] & Moist Neck Neck Exam: Neck Supple, Trachea Midline Pulmonary Resp Exam: Clear Bilaterally, Breath Sounds Equal Cardiology CV Exam: Regular, Normal Sinus Rhythm Gastrointestinal/Abdomen GI Exam: Soft, Non-Tender, Bowel Sounds Present, Positive Bowel Movement, Distended GI Remarks Right upper quadrant biliary drain with green output Musculoskeletal MS Exam: Joints Intact Integumentary Skin Exam: Warm, Dry Extremeties Extremities Exam: Pedal Pulses Palpable, Moderate Edema Neurologic Neuro Exam: Alert, Awake, Oriented, Speech Clear, Moving All Extremities, No Focal Deficits Psychiatric Psych Exam: Appropriate Responses VTE Prophylaxis VTE Prophylaxis Device: SCDs PUD Prophylasis PUD Prophylaxis: Protonix Assessment/Plan Problem List: (1) Anemia (2) Ampullary carcinoma (3) History of prostate cancer (4) Obstructive jaundice due to cancer (5) Protein calorie malnutrition (6) Heme positive stool (7) percutaneous biliary drain (8) Ascites (9) Pleural effusion Assessment/Plan 65-year-old male with recent findings of ampullary mass, bx findings of 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 Patient with significant anemia, Jehovah witness, does not permit blood transfusion. CT abdomen and pelvis done with results as noted. - Venofer infusion - Procrit 20K U qm/w/f - No labs unless patient is having a complication. Jehovah witness. Refuse blood products. -HH on Saturday per onc. - s/p 3rd Radiation treatment, will resume on Saturday -appreciate oncology and rad. oncology input. Bilat pleural effusions -monitor for now -can't tap due to low HH Right biliary draining -Monitor output, 1105 overnight -IR evaluated, -intermittent flushing -Drain care . -T bili elevated Ascites and peripheral edema -monitor for now, consider paracentesis /diagnostic when HH is better -low albumin -elevate legs History of prostate cancer, status post radiation at cancer treatment centers of [facility] -Patient has serial PSAs done as outpatient SCDs for DVT prophylaxis Condition guarded, goals of care remain aggressive per patient and Supportive care to patient and family. D/W RN D/W pt. and , questions answered in detail D/W Dr. Yanez This patient was seen by myself and Dr. Yanez, this note is written on his behalf. Problem Qualifiers (1) Anemia: Qualified Code: D64.9 - Anemia, unspecified type (2) Ascites: Qualified Code: R18.8 - Other ascites Rina Grier Mar 18, 2016 12:43
[2016-03-19] VITALS: BP 118/56; PULSE 78; RESP 16; TEMP 99.5; O2SAT 93
[2016-03-19] MEDS: guaiFENesin SOLUTION 200 MG/10 ML CUP PO PRN (03:55)
[2016-03-19 04:00] VITALS: BP 105/58; PULSE 78; RESP 16; TEMP 99.2; O2SAT 94
[2016-03-19] MEDS: BACITRACIN TOP OINT 15 GM TUBE TOP SCH ×3 (05:04→22:00)
[2016-03-19 07:55] VITALS: BP 106/55; PULSE 66; RESP 16; TEMP 98.6; O2SAT 93
[2016-03-19] MEDS: SODIUM CHLORIDE 0.9% 10 ML VIAL OTHER SCH ×2 (09:00→20:58)
[2016-03-19] MEDS: FAMOTIDINE 20 MG TAB PO SCH ×2 (09:01→20:41)
[2016-03-19] MEDS: FOLIC ACID 1 MG TAB PO SCH (09:01)
[2016-03-19] MEDS: SODIUM CHLORIDE 0.9% FLUSH 5 ML FLUSH FLUSH SCH ×2 (09:01→20:42)
--- NOTE | 2016-03-19 10:52 | PD.ONC.PN ---
Subjective Subjective Remarks Afebrile overnight. Patient resting comfortably. at bedside. He is very excited to learn that his bilirubin went down and hgb slightly improved. He denies bleeding. Denies lightheadedness. Objective Data Date Time Temp Pulse Resp B/P Pulse Ox O2 Delivery O2 Flow Rate FiO2 03/19/16 07:55 98.6 66 16 106/55 93 03/19/16 07:15 Nasal Cannula 2.00 03/19/16 04:00 99.2 78 16 105/58 94 03/19/16 00:00 99.5 78 16 118/56 93 03/18/16 21:29 70 03/18/16 20:00 99.5 68 16 117/60 95 03/18/16 16:00 98.5 70 18 108/59 98 03/18/16 12:00 97.2 63 18 114/55 95 03/19/16 03/19/16 03/19/16 07:00 15:00 23:00 Intake Total 240 ml Output Total 450 ml 350 ml Balance -210 ml -350 ml Result Diagram: 03/19/16 0323 Laboratory Results Laboratory Tests Test 03/19/16 03:23 Hemoglobin 6.2 GM/DL Total Bilirubin 3.3 MG/DL Administered Medications Medications (Trade) Dose Ordered Sig/Zackary Route PRN Reason Start Time Stop Time Status Last Admin Dose Admin IV Flush (NS Flush) 2 ml BID FLUSH 03/13/16 21:00 03/19/16 09:01 Epoetin Den (Epogen Inj) 20,000 units MoWeFr SQ 03/14/16 20:00 03/16/16 20:03 Sodium Chloride (NS Inj) 5 ml BID OTHER 03/14/16 21:00 03/19/16 09:00 Famotidine (Pepcid) 20 mg BID PO 03/14/16 21:00 03/19/16 09:01 Folic Acid (Folate) 1 mg DAILY PO 03/16/16 09:00 03/19/16 09:01 Bacitracin (Baciguent Oint) 1 applic Q8HR TOP 03/16/16 14:00 03/18/16 21:19 Guaifenesin (Robitussin Liq) 200 mg Q4H PRN PO COUGH 03/18/16 02:30 03/19/16 03:55 Objective Remarks GENERAL: Chronically ill appearing male, sitting up in bed, at bedside. Cheerful disposition. SKIN: dry and flaky. no bleeding or oozing from lines. HEAD: Normocephalic. EYES: No injection or drainage. NECK: Supple, trachea midline. CARDIOVASCULAR: Regular rate and rhythm RESPIRATORY: Breath sounds equal bilaterally. No accessory muscle use. GASTROINTESTINAL: Abdomen thin, soft, non-tender, nondistended. biliary drain full with yellow clear fluid. EXTREMITIES: No cyanosis. left arm with stable edema. bilateral LE with mild edema. NEUROLOGICAL: AO x3. normal speech. able to move extremities. 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 --initially presented several weeks ago with loss of appetite and obstructive jaundice. --inpatient w/u at (included MRCP, CT ab , EGD)-->+ large ampullary mass resulting in common bile duct obstruction with resultant dilatation of the pancreatic duct and extra- and intrahepatic bile ducts. An ERCP could not identify the orifice of the common bile duct and, therefore, percutaneous drain had to be placed for management of the hyperbilirubinemia. Over the course of his hospitalization, the patient became increasingly anemic secondary to GI losses ( stool guaiac for blood positive) the etiology of which was thought to be iron deficiency anemia. Because he is a Nondenominational, he was treated with intravenous iron and Epogen support. Per the patient and his family, they were recommended best supportive care/Hospice level of care and wish to seek out second opinion. They therefore presented to [facility] directly after being discharged from [facility]. Plan 1. Ampullary mass: XRT today 05/23-. 2. Anemia: IV iron and EPO (Mondays/Sat/Saturday). Limit blood draws. Every other day draws are reasonable if he appears to be doing well clinically in the absence of overt bleeding. hgb slight improvement to 6.2 today 3. Nutrition: on regular diet. 4. Pleural effusions: Given low H&H at this time, I would not recommend thoracentesis. continue symptomatic management only. 5. Percutaneous biliary tube: 1450cc drainage/24hours. 6. Biliary obstruction: T. Bili level is stable. I expect the radiation to result in some decrease in size of the tumor and this should help drainage. bilirubin improved (declined) to 3.3 today Discharge planning: will ask PT to evaluate. Patient may need placement. We plan to obtain a PET scan and further staging studies outpatient. fs faxed to new patient referrals. Wen Neal Mar 19, 2016 10:52
[2016-03-19 11:40] VITALS: BP 103/57; PULSE 62; RESP 16; TEMP 98.1; O2SAT 100
--- NOTE | 2016-03-19 14:03 | HHI.FF ---
Face to Face Verification Diagnosis: (1) Anemia (2) Ampullary carcinoma (3) History of prostate cancer (4) Obstructive jaundice due to cancer (5) Protein calorie malnutrition (6) Heme positive stool (7) percutaneous biliary drain (8) Ascites (9) Pleural effusion Physical Therapy Order: Evaluate and Treat Home Health Nursing Order: Medical education Wound care and dressing changes Nursing assessment with vital signs Instructions: biliary drain [place] Order: To Evaluate: Support services Order: To Provide: Community services I have seen patient Casper Mullins on 03/19/16. My clinical findings support the need for the requested home health care services because: Patient has SOB Deconditioned w/ increased weakness I certify that my clinical findings support that this patient is homebound because: Unsteady gait/balance Unsafe to leave home unassisted Need for psychosocial assistance Rina Grier Mar 19, 2016 14:03
--- NOTE | 2016-03-19 14:06 | HHI.PR ---
Subjective Subjective Remarks sitting up, feels better, in good spirits no SOB unless inc. activity no cp eating well no n/v had BM yesterday bili drain to gravity, output 1450 overnight no fever eating okay pleased with lab work going for radiation today Review of Systems Constitutional Constitutional: Weakness Constitutional Remarks 12 point ROS completed, neg. except as noted above Pulmonary Respiratory: Coughing GI/Abdomen GI/Abdominal Exam: Positive Bowel Movement, Diarrhea Psychiatric Psychiatric: Anxiety Vitals/Results Intake & Output 03/18/16 03/18/16 03/19/16 15:00 23:00 07:00 Intake Total 720 ml 240 ml 240 ml Output Total 1450 ml 900 ml 450 ml Balance -730 ml -660 ml -210 ml Intake Oral 720 ml 240 ml 240 ml Output Urine Total 800 ml 550 ml Drainage Total 650 ml 350 ml 450 ml # Voids 2 # Bowel Movements 1 1 0 Vital Signs Vital Signs Date Time Temp Pulse Resp B/P Pulse Ox O2 Delivery O2 Flow Rate FiO2 03/19/16 07:55 98.6 66 16 106/55 93 03/19/16 07:15 Nasal Cannula 2.00 03/19/16 04:00 99.2 78 16 105/58 94 03/19/16 00:00 99.5 78 16 118/56 93 03/18/16 21:29 70 03/18/16 20:00 99.5 68 16 117/60 95 03/18/16 16:00 98.5 70 18 108/59 98 CBC/BMP: 03/19/16 0323 Lab Results Laboratory Tests Test 03/19/16 03:23 Hemoglobin 6.2 GM/DL Total Bilirubin 3.3 MG/DL Physical Exam General General Appearance: No Acute Distress, Comfortable, Pale, Malnourished Eyes Eye Exam: Pupils Equal, Pupils Reactive, Extraocular Movement Intact, Jaundice Ears & Nose Ears & Nose Exam: Nasal Mucosa [place] Throat Throat Exam: Oral Mucosa [place] & Moist Neck Neck Exam: Neck Supple, Trachea Midline Pulmonary Resp Exam: Clear Bilaterally, Breath Sounds Equal Cardiology CV Exam: Regular, Normal Sinus Rhythm Gastrointestinal/Abdomen GI Exam: Soft, Non-Tender, Bowel Sounds Present, Positive Bowel Movement, Distended GI Remarks Right upper quadrant biliary drain with green output Musculoskeletal MS Exam: Joints Intact Integumentary Skin Exam: Warm, Dry Extremeties Extremities Exam: Pedal Pulses Palpable, Moderate Edema Neurologic Neuro Exam: Alert, Awake, Oriented, Speech Clear, Moving All Extremities, No Focal Deficits Psychiatric Psych Exam: Appropriate Responses VTE Prophylaxis VTE Prophylaxis Device: SCDs PUD Prophylasis PUD Prophylaxis: Protonix Assessment/Plan Problem List: (1) Anemia (2) Ampullary carcinoma (3) History of prostate cancer (4) Obstructive jaundice due to cancer (5) Protein calorie malnutrition (6) Heme positive stool (7) percutaneous biliary drain (8) Ascites (9) Pleural effusion Assessment/Plan 65-year-old male with recent findings of ampullary mass, bx findings of 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 Patient with significant anemia, Jehovah witness, does not permit blood transfusion. CT abdomen and pelvis done with results as noted. - Venofer infusion - Procrit 20K U qm/w/f - No labs unless patient is having a complication. Jehovah witness. Refuse blood products. -Hgb 6.2, some improvement - s/p 3rd Radiation treatment, will resume today -appreciate oncology and rad. oncology input. Bilat pleural effusions -monitor for now -can't tap due to low HH Right biliary draining -Monitor output, >1000 overnight -IR evaluated, -intermittent flushing -Drain care . -T bili coming down, 3.3 Ascites and peripheral edema -monitor for now, consider paracentesis /diagnostic when HH is better -low albumin -elevate legs History of prostate cancer, status post radiation at cancer treatment centers of [facility] -Patient has serial PSAs done as outpatient SCDs for DVT prophylaxis Condition guarded, goals of care remain aggressive per patient and Supportive care to patient and family. PT mynor JONAS for DC planning, HHC Hopefully discharge by mid week after last radiation treatment D/W RN D/W pt. and , questions answered in detail D/W Dr. Yanez This patient was seen by myself and Dr. Yanez, this note is written on his behalf. Problem Qualifiers (1) Anemia: Qualified Code: D64.9 - Anemia, unspecified type (2) Ascites: Qualified Code: R18.8 - Other ascites Rina Grier Mar 19, 2016 14:06
[2016-03-19 15:15] VITALS: BP 124/76; PULSE 70; RESP 16; TEMP 98.4; O2SAT 96
[2016-03-19 20:15] VITALS: BP 126/61; PULSE 68; RESP 16; TEMP 99.5; O2SAT 93
[2016-03-19] MEDS: EPOETIN ALFA 20,000 UNITS/ML VIAL SQ SCH (20:42)
[2016-03-20] VITALS: BP 113/55; PULSE 74; RESP 16; TEMP 99; O2SAT 93
[2016-03-20 04:00] VITALS: BP 119/64; PULSE 62; RESP 17; TEMP 97.8; O2SAT 94
[2016-03-20] MEDS: BACITRACIN TOP OINT 15 GM TUBE TOP SCH ×3 (05:44→19:51)
[2016-03-20 08:00] VITALS: BP 100/59; PULSE 66; RESP 16; TEMP 97.9; O2SAT 95
[2016-03-20] MEDS: FAMOTIDINE 20 MG TAB PO SCH ×2 (08:55→19:50)
[2016-03-20] MEDS: SODIUM CHLORIDE 0.9% 10 ML VIAL OTHER SCH ×2 (08:55→19:51)
[2016-03-20] MEDS: FOLIC ACID 1 MG TAB PO SCH (08:55)
[2016-03-20] MEDS: SODIUM CHLORIDE 0.9% FLUSH 5 ML FLUSH FLUSH SCH ×2 (08:55→19:50)
--- NOTE | 2016-03-20 09:10 | PD.ONC.PN ---
Subjective Subjective Remarks Mr. Mullins was seen and examined today. He reports feeling better, walked with PT yesterday and felt stronger. Appetite is good, cough better (even without cough medication), stools have been brown. Perc biliary drain continues to drain. Objective Data Date Time Temp Pulse Resp B/P Pulse Ox O2 Delivery O2 Flow Rate FiO2 03/20/16 08:00 97.9 66 16 100/59 95 03/20/16 07:11 Nasal Cannula 2.00 03/20/16 04:00 97.8 62 17 119/64 94 03/20/16 00:00 99.0 74 16 113/55 93 03/19/16 20:15 99.5 68 16 126/61 93 03/19/16 17:31 Nasal Cannula 2.00 03/19/16 15:15 98.4 70 16 124/76 96 03/19/16 11:40 98.1 62 16 103/57 100 03/20/16 03/20/16 03/20/16 07:00 15:00 23:00 Intake Total 240 ml Output Total 650 ml 380 ml Balance -410 ml -380 ml Result Diagram: 03/19/16 0323 Administered Medications Medications (Trade) Dose Ordered Sig/Zackary Route PRN Reason Start Time Stop Time Status Last Admin Dose Admin IV Flush (NS Flush) 2 ml BID FLUSH 03/13/16 21:00 03/20/16 08:55 Epoetin Den (Epogen Inj) 20,000 units MoWeFr SQ 03/14/16 20:00 03/19/16 20:42 Sodium Chloride (NS Inj) 5 ml BID OTHER 03/14/16 21:00 03/20/16 08:55 Famotidine (Pepcid) 20 mg BID PO 03/14/16 21:00 03/20/16 08:55 Folic Acid (Folate) 1 mg DAILY PO 03/16/16 09:00 03/20/16 08:55 Bacitracin (Baciguent Oint) 1 applic Q8HR TOP 03/16/16 14:00 03/18/16 21:19 Guaifenesin (Robitussin Liq) 200 mg Q4H PRN PO COUGH 03/18/16 02:30 03/19/16 03:55 Objective Remarks GENERAL APPEARANCE: Mr. Mullins is an elderly male. He is tall, pale and jaundiced appearing. He is sitting up in bed and is in no apparent distress. HEENT: Head atraumatic, normocephalic, conjunctive are pale, sclerae are icteric, EOMI, PERRLA, oral exam no pharyngeal erythema. NECK: No palpable cervical or supraclavicular lymphadenopathy. RESPIRATORY: Decreased bibasilar breath sounds with dullness to percussion, good air movement on anterior exam over the upper and middle lung zones. CARDIOVASCULAR: Regular rhythm, S1-S2. No obvious murmurs, rubs or gallops. ABDOMEN: Belly is distended. He is generally thin. There is some cutaneous edema identified. No palpable organ enlargement is appreciated. EXTREMITIES: Bilateral pretibial edema, no calf tenderness. He does have tenderness over the tibia, specifically over the left superior anterior aspect of the tibia. Left upper extremity edema. HAIRSPRING STUDDER: No focal sensory motor deficits. 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 --initially presented several weeks ago with loss of appetite and obstructive jaundice. --inpatient w/u at (included MRCP, CT ab , EGD)-->+ large ampullary mass resulting in common bile duct obstruction with resultant dilatation of the pancreatic duct and extra- and intrahepatic bile ducts. An ERCP could not identify the orifice of the common bile duct and, therefore, percutaneous drain had to be placed for management of the hyperbilirubinemia. Over the course of his hospitalization, the patient became increasingly anemic secondary to GI losses ( stool guaiac for blood positive) the etiology of which was thought to be iron deficiency anemia. Because he is a Faith, he was treated with intravenous iron and Epogen support. Per the patient and his family, they were recommended best supportive care/Hospice level of care and wish to seek out second opinion. They therefore presented to [facility] directly after being discharged from [facility]. Plan 1. Ampullary mass: XRT today 06/27 today. No evidence of active bleeding. Denies pain. T. Bili level down to 3.3 as of 03/19/16. 2. Anemia: IV iron and EPO (Mondays/Sat/Saturday). Hgb improved to 6.2 from 5.0 at admission. Continue current regimen. THis may be resumed in the out pt setting at d/c. 3. Nutrition: on regular diet. 4. Pleural effusions: Clinically improved. 5. Percutaneous biliary tube: Draining well. 6. Biliary obstruction: stable with perc bili drain. Discharge planning: Is very stable, ok to d/c home from Oncology standpoint, when home PT arranged, out pt Radiation is already set up. I will need out pt follow up with resumption of IV iron and EPO. He will need restaging scans. Trevor Willett MD Mar 20, 2016 09:10
[2016-03-20 12:00] VITALS: BP 125/66; PULSE 61; RESP 18; TEMP 98.5; O2SAT 98
--- NOTE | 2016-03-20 12:55 | HHI.PR ---
Subjective Interval History Alert, oriented, denies complaints at rest, feeling better, eating without problems, wondering when he can go home Review of Systems Constitutional Constitutional: Weakness Pulmonary Respiratory: Coughing GI/Abdomen GI/Abdominal Exam: Positive Bowel Movement, Diarrhea Psychiatric Psychiatric: Anxiety Vitals/Results Intake & Output 03/19/16 03/19/16 03/20/16 15:00 23:00 07:00 Intake Total 960 ml 240 ml 240 ml Output Total 465 ml 385 ml 650 ml Balance 495 ml -145 ml -410 ml Intake Oral 960 ml 240 ml 240 ml Output Urine Total 280 ml 400 ml Drainage Total 465 ml 105 ml 250 ml # Voids 3 # Bowel Movements 2 0 1 Vital Signs Vital Signs Date Time Temp Pulse Resp B/P Pulse Ox O2 Delivery O2 Flow Rate FiO2 03/20/16 12:00 98.5 61 18 125/66 98 03/20/16 08:00 97.9 66 16 100/59 95 03/20/16 07:11 Nasal Cannula 2.00 03/20/16 04:00 97.8 62 17 119/64 94 03/20/16 00:00 99.0 74 16 113/55 93 03/19/16 20:15 99.5 68 16 126/61 93 03/19/16 17:31 Nasal Cannula 2.00 03/19/16 15:15 98.4 70 16 124/76 96 CBC/BMP: 03/19/16 0323 Physical Exam General General Appearance: No Acute Distress, Comfortable, Pale, Malnourished Appearance Remarks Severely jaundiced Eyes Eye Exam: Pupils Equal, Pupils Reactive, Extraocular Movement Intact, Jaundice Ears & Nose Ears & Nose Exam: Nasal Mucosa [place] Throat Throat Exam: Oral Mucosa [place] & Moist Neck Neck Exam: Neck Supple, Trachea Midline Pulmonary Resp Exam: Clear Bilaterally, Breath Sounds Equal Cardiology CV Exam: Regular, Normal Sinus Rhythm Gastrointestinal/Abdomen GI Exam: Soft, Non-Tender, Bowel Sounds Present, Positive Bowel Movement, Distended GI Remarks Right upper quadrant drain in place Musculoskeletal MS Exam: Normal Tone Integumentary Skin Exam: Warm, Dry Extremeties Extremities Exam: Pedal Pulses Palpable, Moderate Edema Neurologic Neuro Exam: Alert, Awake, Oriented, Speech Clear, Moving All Extremities, No Focal Deficits Psychiatric Psych Exam: Appropriate Responses VTE Prophylaxis VTE Prophylaxis Device: SCDs PUD Prophylasis PUD Prophylaxis: Protonix Assessment/Plan Problem List: (1) Anemia (2) Ampullary carcinoma (3) History of prostate cancer (4) Obstructive jaundice due to cancer (5) Protein calorie malnutrition (6) Heme positive stool (7) percutaneous biliary drain (8) Ascites (9) Pleural effusion Assessment/Plan Assessment Ampullary mass Moderately differentiated adenocarcinoma with focal signet ring cells Obstructive anus jaundice Status post biliary drainage Severe anemia, cannot transfuse because he is Religious Status post IV iron infusion Management Pain control, if any Monitor hemoglobin intermittently May need more iron Continued biliary drainage timing of capping the drain per oncology Ambulate if tolerated Erythropoietin injection Radiation therapy Poor prognosis Discussed with patient discussed with nurse Problem Qualifiers (1) Anemia: Qualified Code: D64.9 - Anemia, unspecified type (2) Ascites: Qualified Code: R18.8 - Other ascites Rishi Yanez MD Mar 20, 2016 12:55 Hopefully discharge by mid week after last radiation treatment D/W RN D/W pt. and , questions answered in detail D/W Dr. Yanez This patient was seen by myself and Dr. Yanez, this note is written on his behalf. Problem Qualifiers (1) Anemia: Qualified Code: D64.9 - Anemia, unspecified type (2) Ascites: Qualified Code: R18.8 - Other ascites Rishi Yanez MD Mar 20, 2016 12:55
[2016-03-20 16:00] VITALS: BP 123/62; PULSE 88; RESP 18; TEMP 97.6; O2SAT 95
[2016-03-20 20:00] VITALS: BP 112/61; PULSE 76; RESP 16; TEMP 100.9; O2SAT 95
[2016-03-20] MEDS: METRONIDAZOLE 500 MG/100 ML ISONTONIC SOLN IV SCH (21:35)
[2016-03-20] MEDS: PIPERACIL-TAZO 3.375 GM PREMIX 50 ML IV SCH (22:53)
[2016-03-21] VITALS: BP 94/57; PULSE 66; RESP 18; TEMP 99.8; O2SAT 93
[2016-03-21] MEDS: METRONIDAZOLE 500 MG/100 ML ISONTONIC SOLN IV SCH ×3 (03:39→20:21)
[2016-03-21] MEDS: PIPERACIL-TAZO 3.375 GM PREMIX 50 ML IV SCH ×4 (03:39→20:21)
[2016-03-21 04:00] VITALS: BP 116/58; PULSE 61; RESP 16; TEMP 97; O2SAT 95
[2016-03-21] MEDS: BACITRACIN TOP OINT 15 GM TUBE TOP SCH ×3 (06:00→20:22)
[2016-03-21 08:00] VITALS: BP 113/54; PULSE 64; RESP 24; TEMP 98.6; O2SAT 96
[2016-03-21] MEDS: IRON SUCROSE INJ 100 MG in SODIUM CHLORIDE 0.9% INJ 100 ML IV SCH (10:26)
[2016-03-21] MEDS: SODIUM CHLORIDE 0.9% 10 ML VIAL OTHER SCH ×2 (10:27→20:21)
[2016-03-21] MEDS: FOLIC ACID 1 MG TAB PO SCH (10:27)
[2016-03-21] MEDS: FAMOTIDINE 20 MG TAB PO SCH ×2 (10:27→20:20)
[2016-03-21] MEDS: SODIUM CHLORIDE 0.9% FLUSH 5 ML FLUSH FLUSH SCH ×2 (10:27→20:21)
[2016-03-21 12:00] VITALS: BP 108/56; PULSE 64; RESP 24; TEMP 98.9; O2SAT 92
--- NOTE | 2016-03-21 12:13 | HHI.PR ---
Subjective Interval History Alert, oriented, extremely weak, able to eat, Review of Systems Constitutional Constitutional: Weakness Constitutional Remarks General weakness, jaundiced, 10 systems reviewed and otherwise negative Pulmonary Respiratory: Coughing GI/Abdomen GI/Abdominal Exam: Positive Bowel Movement, Diarrhea Psychiatric Psychiatric: Anxiety Vitals/Results Intake & Output 03/20/16 03/20/16 03/21/16 15:00 23:00 07:00 Intake Total 960 ml 840 ml 830 ml Output Total 780 ml 600 ml 600 ml Balance 180 ml 240 ml 230 ml Intake Oral 960 ml 840 ml 480 ml IV Total 350 ml Output Urine Total 430 ml 300 ml 600 ml Drainage Total 350 ml 300 ml # Voids 1 1 1 # Bowel Movements 1 2 Vital Signs Vital Signs Date Time Temp Pulse Resp B/P Pulse Ox O2 Delivery O2 Flow Rate FiO2 03/21/16 12:00 98.9 64 24 108/56 92 03/21/16 08:00 98.6 64 24 113/54 96 03/21/16 04:00 97.0 61 16 116/58 95 03/21/16 00:00 99.8 66 18 94/57 93 03/20/16 21:08 Nasal Cannula 2.00 03/20/16 20:00 100.9 76 16 112/61 95 03/20/16 16:00 97.6 88 18 123/62 95 CBC/BMP: 03/19/16 0323 Lab Results Laboratory Tests Test 03/20/16 22:38 Lactic Acid Level 1.2 mmol/L Microbiology Microbiology 03/20/16 Aerobic Blood Culture, Received Pending 03/20/16 Anaerobic Blood Culture, Received Pending 03/20/16 Aerobic Blood Culture - Preliminary, Resulted NO GROWTH IN 1 DAY 03/20/16 Anaerobic Blood Culture - Preliminary, Resulted NO GROWTH IN 1 DAY 03/20/16 Aerobic Blood Culture - Preliminary, Resulted NO GROWTH IN 1 DAY 03/20/16 Anaerobic Blood Culture - Preliminary, Resulted NO GROWTH IN 1 DAY Physical Exam General General Appearance: No Acute Distress, Comfortable, Pale, Malnourished Appearance Remarks Severely jaundiced Eyes Eye Exam: Pupils Equal, Pupils Reactive, Extraocular Movement Intact, Jaundice Ears & Nose Ears & Nose Exam: Nasal Mucosa [place] Throat Throat Exam: Oral Mucosa [place] & Moist Neck Neck Exam: Neck Supple, Trachea Midline Pulmonary Resp Exam: Clear Bilaterally, Breath Sounds Equal Cardiology CV Exam: Regular, Normal Sinus Rhythm Gastrointestinal/Abdomen GI Exam: Soft, Non-Tender, Bowel Sounds Present, Positive Bowel Movement, Distended GI Remarks Right upper quadrant drain in place Musculoskeletal MS Exam: Normal Tone Integumentary Skin Exam: Warm, Dry Extremeties Extremities Exam: Pedal Pulses Palpable, Moderate Edema Neurologic Neuro Exam: Alert, Awake, Oriented, Speech Clear, Moving All Extremities, No Focal Deficits Psychiatric Psych Exam: Appropriate Responses VTE Prophylaxis VTE Prophylaxis Device: SCDs PUD Prophylasis PUD Prophylaxis: Protonix Assessment/Plan Problem List: (1) Anemia (2) Ampullary carcinoma (3) History of prostate cancer (4) Obstructive jaundice due to cancer (5) Protein calorie malnutrition (6) Heme positive stool (7) percutaneous biliary drain (8) Ascites (9) Pleural effusion Assessment/Plan Assessment Ampullary mass Moderately differentiated adenocarcinoma with focal signet ring cells Obstructive anus jaundice Status post biliary drainage Severe anemia, cannot transfuse because he is Moravian Status post IV iron infusion Management Pain control, if any Monitor hemoglobin intermittently Continued biliary drainage Ambulate if tolerated Erythropoietin injection Radiation therapy Poor prognosis Discussed with patient discussed with nurse Problem Qualifiers (1) Anemia: Qualified Code: D64.9 - Anemia, unspecified type (2) Ascites: Qualified Code: R18.8 - Other ascites Rishi Yanez MD Mar 21, 2016 12:13
[2016-03-21 20:00] VITALS: BP 120/56; PULSE 68; RESP 18; TEMP 96.6; O2SAT 96
[2016-03-21] MEDS: EPOETIN ALFA 20,000 UNITS/ML VIAL SQ SCH (20:54)
[2016-03-22] VITALS: BP 117/62; PULSE 70; RESP 18; TEMP 96.9; O2SAT 96
[2016-03-22] MEDS: PIPERACIL-TAZO 3.375 GM PREMIX 50 ML IV SCH ×2 (03:42→11:24)
[2016-03-22] MEDS: METRONIDAZOLE 500 MG/100 ML ISONTONIC SOLN IV SCH ×2 (03:43→13:35)
[2016-03-22 04:00] VITALS: BP 108/53; PULSE 66; RESP 16; TEMP 98.6; O2SAT 94
[2016-03-22] MEDS: BACITRACIN TOP OINT 15 GM TUBE TOP SCH ×3 (04:39→22:00)
[2016-03-22 08:00] VITALS: BP 115/52; PULSE 66; RESP 16; TEMP 98.3; O2SAT 95
[2016-03-22] MEDS: SODIUM CHLORIDE 0.9% FLUSH 5 ML FLUSH FLUSH SCH ×2 (09:00→20:24)
[2016-03-22] MEDS: SODIUM CHLORIDE 0.9% 10 ML VIAL OTHER SCH ×2 (09:00→21:00)
[2016-03-22] MEDS: FAMOTIDINE 20 MG TAB PO SCH ×2 (09:21→20:24)
[2016-03-22] MEDS: FOLIC ACID 1 MG TAB PO SCH (09:21)
[2016-03-22] MEDS: IRON SUCROSE INJ 100 MG in SODIUM CHLORIDE 0.9% INJ 100 ML IV SCH (09:23)
--- NOTE | 2016-03-22 10:20 | PD.ONC.PN ---
Subjective Subjective Remarks Afebrile overnight. Patient sitting up in bed in no distress. He states he is looking forward to physical therapy to work with him today. He feels stronger. He has no other complaints. Objective Data Date Time Temp Pulse Resp B/P Pulse Ox O2 Delivery O2 Flow Rate FiO2 03/22/16 09:42 Room Air 03/22/16 08:00 98.3 66 16 115/52 95 03/22/16 04:00 98.6 66 16 108/53 94 03/22/16 00:00 96.9 70 18 117/62 96 03/21/16 21:17 Nasal Cannula 2.00 03/21/16 20:00 96.6 68 18 120/56 96 03/21/16 18:00 Nasal Cannula 2.00 03/21/16 12:00 98.9 64 24 108/56 92 Result Diagram: 03/19/16 0323 Culture Results Microbiology Date/Time Procedure Status Source Growth 03/20/16 22:18 Aerobic Blood Culture Received Blood Peripheral Pending 03/20/16 22:18 Anaerobic Blood Culture Received Blood Peripheral Pending 03/20/16 22:35 Aerobic Blood Culture - Preliminary Resulted Blood Peripheral NO GROWTH IN 1 DAY 03/20/16 22:35 Anaerobic Blood Culture - Final Resulted Blood Peripheral QNS - SEE AEROBE REPORT 03/20/16 22:38 Aerobic Blood Culture - Preliminary Resulted Blood Peripheral NO GROWTH IN 1 DAY 03/20/16 22:38 Anaerobic Blood Culture - Final Resulted Blood Peripheral QNS - SEE AEROBE REPORT Administered Medications Medications (Trade) Dose Ordered Sig/Zackary Route PRN Reason Start Time Stop Time Status Last Admin Dose Admin IV Flush (NS Flush) 2 ml BID FLUSH 03/13/16 21:00 03/22/16 09:00 Acetaminophen (Tylenol) 650 mg Q4H PRN PO TEMP > 100.4 03/13/16 17:00 03/20/16 20:01 Epoetin Den (Epogen Inj) 20,000 units MoWeFr SQ 03/14/16 20:00 03/21/16 20:54 Sodium Chloride (NS Inj) 5 ml BID OTHER 03/14/16 21:00 03/22/16 09:00 Famotidine (Pepcid) 20 mg BID PO 03/14/16 21:00 03/22/16 09:21 Folic Acid (Folate) 1 mg DAILY PO 03/16/16 09:00 03/22/16 09:21 Bacitracin (Baciguent Oint) 1 applic Q8HR TOP 03/16/16 14:00 03/21/16 16:32 Guaifenesin 200 mg 200 mg Q4H PRN PO COUGH 03/18/16 02:30 03/19/16 03:55 Metronidazole 100 ml @ 100 mls/hr Q8H IV 03/20/16 21:00 03/22/16 03:43 Piperacillin Sod/ Tazobactam Sod 50 ml @ 100 mls/hr Q6H IV 03/20/16 22:00 03/22/16 03:42 Iron Sucrose/ Sodium Chloride (Venofer Inj/NS Inj) 105 ml @ 105 mls/hr DAILY IV 03/21/16 09:00 03/23/16 09:59 03/22/16 09:23 Objective Remarks GENERAL: Chronically ill appearing male, sitting up in bed in no distress. SKIN: Jaundiced appearing. no bleeding or oozing from lines. HEAD: Normocephalic. EYES: No injection or drainage. NECK: Supple, trachea midline. CARDIOVASCULAR: +S1/S2. No murmur noted. RESPIRATORY: Breath sounds equal bilaterally. No accessory muscle use. GASTROINTESTINAL: Abdomen thin, soft, non-tender, nondistended. biliary drain full with yellow clear fluid. EXTREMITIES: No cyanosis. left arm with stable edema. Mild pedal edema bilaterally. NEUROLOGICAL: AO x3. normal speech. No focal deficit. 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 --initially presented several weeks ago with loss of appetite and obstructive jaundice. --inpatient w/u at (included MRCP, CT ab , EGD)-->+ large ampullary mass resulting in common bile duct obstruction with resultant dilatation of the pancreatic duct and extra- and intrahepatic bile ducts. An ERCP could not identify the orifice of the common bile duct and, therefore, percutaneous drain had to be placed for management of the hyperbilirubinemia. Over the course of his hospitalization, the patient became increasingly anemic secondary to GI losses ( stool guaiac for blood positive) the etiology of which was thought to be iron deficiency anemia. Because he is a Islam, he was treated with intravenous iron and Epogen support. Per the patient and his family, they were recommended best supportive care/Hospice level of care and wish to seek out second opinion. They therefore presented to [facility] directly after being discharged from [facility] in [facility]. Plan 1. Ampullary mass: XRT today 08/27 today. No evidence of active bleeding. Denies pain. Last XRT scheduled 03/27. 2. Anemia: IV iron and EPO (Mondays/Sat/Saturday). We will recheck labs on Saturday. Hgb improved to 6.2 from 5.0 at admission. We will get labs done tomorrow (03/23) as this will be 4 days since last CBC check. Current regimen may be continued on an outpatient setting. 3. Nutrition: Continue regular diet. 4. Pleural effusions: Clinically improved. 5. Percutaneous biliary tube: Draining well. 6. Biliary obstruction: stable with perc bili drain. 7. Weakness: Continue PT. Discharge planning: Is very stable, ok to d/c home from Oncology standpoint, when home PT arranged, out pt Radiation is already set up. He will need out pt follow up with resumption of IV iron and EPO. He will need restaging scans. Kathya Hargrove Mar 22, 2016 10:19
[2016-03-22 12:00] VITALS: BP 126/64; PULSE 69; RESP 16; TEMP 97.1; O2SAT 96
[2016-03-22] MEDS ORDERED: GUAI100S7 PO (14:30)
[2016-03-22 16:00] VITALS: BP 123/65; PULSE 63; RESP 16; TEMP 97.5; O2SAT 92
[2016-03-22 20:00] VITALS: BP 121/63; PULSE 62; RESP 18; TEMP 97.8; O2SAT 95
--- NOTE | 2016-03-22 23:35 | HHI.PR ---
Subjective Interval History Alert, oriented, feeling better, still generally weak, eating, less jaundiced Review of Systems Constitutional Constitutional: Weakness Constitutional Remarks Generally weak, anxious, less diarrhea, eating okay, 10 systems reviewed and negative otherwise Pulmonary Respiratory: Coughing Psychiatric Psychiatric: Anxiety Vitals/Results Intake & Output 03/21/16 03/21/16 03/22/16 15:00 23:00 07:00 Intake Total 240 ml 480 ml 251 ml Output Total 445 ml 850 ml 1050 ml Balance -205 ml -370 ml -799 ml Intake Oral 240 ml 480 ml IV Total 251 ml Output Urine Total 400 ml 500 ml 700 ml Drainage Total 45 ml 350 ml 350 ml # Bowel Movements 1 1 Vital Signs Vital Signs Date Time Temp Pulse Resp B/P Pulse Ox O2 Delivery O2 Flow Rate FiO2 03/22/16 16:00 97.5 63 16 123/65 92 03/22/16 12:00 97.1 69 16 126/64 96 03/22/16 09:42 Room Air 03/22/16 08:00 98.3 66 16 115/52 95 03/22/16 04:00 98.6 66 16 108/53 94 03/22/16 00:00 96.9 70 18 117/62 96 CBC/BMP: 03/19/16 0323 Physical Exam General General Appearance: No Acute Distress, Comfortable, Pale, Malnourished Appearance Remarks Severely jaundiced Eyes Eye Exam: Pupils Equal, Pupils Reactive, Extraocular Movement Intact, Jaundice Ears & Nose Ears & Nose Exam: Nasal Mucosa [place] Throat Throat Exam: Oral Mucosa [place] & Moist Neck Neck Exam: Neck Supple, Trachea Midline Pulmonary Resp Exam: Clear Bilaterally, Breath Sounds Equal Cardiology CV Exam: Regular, Normal Sinus Rhythm Gastrointestinal/Abdomen GI Exam: Soft, Non-Tender, Bowel Sounds Present, Positive Bowel Movement, Distended GI Remarks Right upper quadrant drain in place Musculoskeletal MS Exam: Normal Tone Integumentary Skin Exam: Warm, Dry Extremeties Extremities Exam: Pedal Pulses Palpable, Moderate Edema Neurologic Neuro Exam: Alert, Awake, Oriented, Speech Clear, Moving All Extremities, No Focal Deficits Psychiatric Psych Exam: Appropriate Responses VTE Prophylaxis VTE Prophylaxis Device: SCDs PUD Prophylasis PUD Prophylaxis: Protonix Assessment/Plan Problem List: (1) Anemia (2) Ampullary carcinoma (3) History of prostate cancer (4) Obstructive jaundice due to cancer (5) Protein calorie malnutrition (6) Heme positive stool (7) percutaneous biliary drain (8) Ascites (9) Pleural effusion Assessment/Plan Assessment Ampullary mass Moderately differentiated adenocarcinoma with focal signet ring cells Obstructive painless jaundice Status post biliary drainage Severe anemia, cannot transfuse because he is [employer] Status post IV iron infusion Management Pain control, if any Arrange for discharge home with home health May need more iron in future Continued biliary drainage Discussed with oncology, keep drain as it is at this time without changes Ambulate if tolerated Radiation therapy Poor prognosis Discussed with patient discussed with nurse Discharge Minutes: 40 Problem Qualifiers (1) Ascites: Qualified Code: R18.8 - Other ascites Rishi Yanez MD Mar 22, 2016 23:35 Rishi Yanez MD Mar 22, 2016 23:35
[2016-03-23] VITALS: BP 121/62; PULSE 66; RESP 18; TEMP 97.6; O2SAT 97
[2016-03-23] MEDS: guaiFENesin SOLUTION 200 MG/10 ML CUP PO PRN (00:02)
[2016-03-23 04:00] VITALS: BP 113/57; PULSE 67; RESP 18; TEMP 97.6; O2SAT 94
[2016-03-23] MEDS: BACITRACIN TOP OINT 15 GM TUBE TOP SCH ×2 (06:00→13:01)
[2016-03-23 08:00] VITALS: BP 139/55; PULSE 63; RESP 16; TEMP 97.9; O2SAT 93
[2016-03-23] MEDS: SODIUM CHLORIDE 0.9% 10 ML VIAL OTHER SCH (09:00)
[2016-03-23] MEDS: SODIUM CHLORIDE 0.9% FLUSH 5 ML FLUSH FLUSH SCH (09:00)
[2016-03-23] MEDS: FAMOTIDINE 20 MG TAB PO SCH (09:25)
[2016-03-23] MEDS: FOLIC ACID 1 MG TAB PO SCH (09:25)
[2016-03-23] MEDS: IRON SUCROSE INJ 100 MG in SODIUM CHLORIDE 0.9% INJ 100 ML IV SCH (09:25)
[2016-03-23 11:30] VITALS: BP 130/55; PULSE 60; RESP 16; TEMP 98.6; O2SAT 97
--- NOTE | 2016-03-23 13:47 | PD.ONC.PN ---
Subjective Subjective Remarks Afebrile overnight. Patient resting comfortably. at bedside. "I feel great! " Objective Data Date Time Temp Pulse Resp B/P Pulse Ox O2 Delivery O2 Flow Rate FiO2 03/23/16 11:30 98.6 60 16 130/55 97 03/23/16 10:45 Room Air 1.50 03/23/16 08:00 97.9 63 16 139/55 93 03/23/16 04:00 97.6 67 18 113/57 94 03/23/16 00:00 97.6 66 18 121/62 97 03/22/16 21:00 95 Nasal Cannula 1.50 03/22/16 20:00 97.8 62 18 121/63 95 03/22/16 16:00 97.5 63 16 123/65 92 03/23/16 03/23/16 03/23/16 07:00 15:00 23:00 Intake Total 240 ml Output Total 800 ml 185 ml Balance -560 ml -185 ml Result Diagram: 03/23/16 0528 Laboratory Results Laboratory Tests Test 03/23/16 05:28 Hemoglobin 6.7 GM/DL Total Bilirubin 3.3 MG/DL Culture Results Microbiology Date/Time Procedure Status Source Growth 03/20/16 22:18 Aerobic Blood Culture Received Blood Peripheral Pending 03/20/16 22:18 Anaerobic Blood Culture Received Blood Peripheral Pending 03/20/16 22:35 Aerobic Blood Culture - Preliminary Resulted Blood Peripheral NO GROWTH IN 3 DAYS 03/20/16 22:35 Anaerobic Blood Culture - Final Resulted Blood Peripheral QNS - SEE AEROBE REPORT 03/20/16 22:38 Aerobic Blood Culture - Preliminary Resulted Blood Peripheral NO GROWTH IN 3 DAYS 03/20/16 22:38 Anaerobic Blood Culture - Final Resulted Blood Peripheral QNS - SEE AEROBE REPORT Administered Medications Medications (Trade) Dose Ordered Sig/Zackary Route PRN Reason Start Time Stop Time Status Last Admin Dose Admin IV Flush (NS Flush) 2 ml BID FLUSH 03/13/16 21:00 03/23/16 09:00 Acetaminophen (Tylenol) 650 mg Q4H PRN PO TEMP > 100.4 03/13/16 17:00 03/20/16 20:01 Epoetin Den (Epogen Inj) 20,000 units MoWeFr SQ 03/14/16 20:00 03/21/16 20:54 Sodium Chloride (NS Inj) 5 ml BID OTHER 03/14/16 21:00 03/23/16 09:00 Famotidine (Pepcid) 20 mg BID PO 03/14/16 21:00 03/23/16 09:25 Folic Acid (Folate) 1 mg DAILY PO 03/16/16 09:00 03/23/16 09:25 Bacitracin (Baciguent Oint) 1 applic Q8HR TOP 03/16/16 14:00 03/22/16 22:00 Guaifenesin (Robitussin Liq) 200 mg Q4H PRN PO COUGH 03/18/16 02:30 03/23/16 00:02 Objective Remarks GENERAL: Middle aged male, sitting up in bed SKIN: Warm and dry. HEAD: Normocephalic. EYES: No injection or drainage. NECK: Supple, trachea midline. CARDIOVASCULAR: Regular rate and rhythm RESPIRATORY: diminished at bases. occasional rhonchi in anterior bolden GASTROINTESTINAL: Abdomen soft, non-tender, nondistended. EXTREMITIES: No cyanosis NEUROLOGICAL: No obvious focal deficit. Awake, alert, and oriented x3. 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 --initially presented several weeks ago with loss of appetite and obstructive jaundice. --inpatient w/u at (included MRCP, CT ab , EGD)-->+ large ampullary mass resulting in common bile duct obstruction with resultant dilatation of the pancreatic duct and extra- and intrahepatic bile ducts. An ERCP could not identify the orifice of the common bile duct and, therefore, percutaneous drain had to be placed for management of the hyperbilirubinemia. Over the course of his hospitalization, the patient became increasingly anemic secondary to GI losses ( stool guaiac for blood positive) the etiology of which was thought to be iron deficiency anemia. Because he is a Lutheran, he was treated with intravenous iron and Epogen support. Per the patient and his family, they were recommended best supportive care/Hospice level of care and wish to seek out second opinion. They therefore presented to [facility] directly after being discharged from [facility]. Plan 1. Ampullary mass: XRT today 09/27 today. Last XRT on 03/27. 2. Anemia: IV iron and EPO (Mondays/Sat/Saturday). plan to arrange outpatient follow up once discharged. will set up Epogen and iron in clinic as well as appointment with Dr. Willett. 3. Nutrition: tolerating regular diet. 4. Pleural effusions: stable on 1.5L O2 5. Percutaneous biliary tube: 185cc drainage/24hrs 6. Biliary obstruction: bili 3.3 today 7. Weakness: Continue PT. Discharge planning: will arrange appointment next week in [place] at 4PM with Dr. Willett. We plan to give Epogen and Iron MWF next week. Wen Neal Mar 23, 2016 13:47 Wen Neal Mar 23, 2016 13:47
[2016-03-23] MEDS: EPOETIN ALFA 20,000 UNITS/ML VIAL SQ SCH (13:58)
--- NOTE | 2016-04-20 18:35 | HHI.DS ---
Discharge Summary Admission Date Mar 13, 2016 at 16:56 Discharge Date: Mar 23, 2016 Admitting Diagnosis ampullary cancer, anemia (1) Anemia Diagnosis: Principal (2) Ampullary carcinoma Diagnosis: Principal (3) Obstructive jaundice due to cancer Diagnosis: Secondary (4) History of prostate cancer Diagnosis: Secondary (5) Protein calorie malnutrition Diagnosis: Principal (6) Heme positive stool Diagnosis: Principal (7) percutaneous biliary drain Diagnosis: Secondary Procedures Drain Brief History This was an unfortunate 65-year-old male who presented to this facility for evaluation of anemia, hemoglobin of 4. Patient was recently admitted at [facility] from March 01 and was discharged home today. Pt presented here for further evaluation and to seek a second opinion. Information obtained from the patient, his and from extensive review of records from [facility]. Patient initially presented to [facility] with complaint of jaundice, generalized malaise, fatigue and early satiety for several months. He saw his primary care physician who did laboratory workup and was noted with elevated liver function tests. PCP also order ultrasound of the abdomen that showed some inflammation of the gallbladder and liver. When he presented to [facility], he was noted with significant anemia, hemoglobin of 6.2. Patient was a Jehovah witness and does not accept blood transfusion. During hospitalization at [facility], patient was evaluated by oncologist Dr. Green, Dr. Eaton, Dr. Ba, Dr. Brock (IR). Patient underwent imaging studies, that showed an ampullary mass. Dr. Eaton attempted ERCP with biopsy on 03/03/2016 however he was not able to thread the wire although a biopsy was obtained. 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 Dr. Ba evaluated patient, however mass was not resectable unless anemia was resolved. Patient received Procrit as well as iron infusions. Interventional radiology was consulted and a biliary drain was inserted on 03/03/2016. Apparently the drain clogged and it was exchanged on 03/11/2016 and is currently capped. A biliary stent was also considered however interventional radiology was not able to insert because of the low hemoglobin. Review of records indicate there was possibility that there was bleeding from the mass. Conservative care was recommended, Dr. Green briefly discussed hospice however patient and his would like to pursue more aggressive treatment; possibly at a facility in [place] that offers bloodless procedure. Dr. Ba also discussed the possibility of robotic surgery at this facility. Patient was discharge home today in fair condition and instructed to continue with oral iron replacement. Patient endorses that he was told by leaders of his rastafari about oncologist Dr. Willett and the possibility that he may offer some options in regards to treatment. He adamantly refuses blood transfusion per his orthodox beliefs. Imaging Last Impressions Abdomen/Pelvis CT 03/13/16 1505 Signed Impressions: Service Date/Time: Sunday, March 13, 2016 17:24 - CONCLUSION: Percutaneous biliary stent in place with air in the bile ducts with maximum width of the common duct 1.2 cm. Cystic dilatation of pancreatic duct. There is a history of apparently of an ampullary carcinoma. There is ascitic fluid throughout the abdomen and pelvis. Bilateral pleural effusions noted with compressive atelectasis in the posterior segments of the lower lobes Reddy Wolf MD PE at Discharge Appearance Remarks Severely jaundiced Eyes Eye Exam: Pupils Equal, Pupils Reactive, Extraocular Movement Intact, Jaundice Ears & Nose Ears & Nose Exam: Nasal Mucosa Humphreys Throat Throat Exam: Oral Mucosa Humphreys & Moist Neck Neck Exam: Neck Supple, Trachea Midline Pulmonary Resp Exam: Clear Bilaterally, Breath Sounds Equal Cardiology CV Exam: Regular, Normal Sinus Rhythm Gastrointestinal/Abdomen GI Exam: Soft, Non-Tender, Bowel Sounds Present, Positive Bowel Movement, Distended GI Remarks Right upper quadrant drain in place Musculoskeletal MS Exam: Normal Tone Integumentary Skin Exam: Warm, Dry Extremeties Extremities Exam: Pedal Pulses Palpable, Moderate Edema Neurologic Neuro Exam: Alert, Awake, Oriented, Speech Clear, Moving All Extremities, No Focal Deficits Psychiatric Psych Exam: Appropriate Responses VTE Prophylaxis VTE Prophylaxis Device: SCDs PUD Prophylasis PUD Prophylaxis: Protonix Hospital Course In the ER, patient was evaluated, he was noted with blood pressure 100/58, heart rate 58, afebrile temperature 97.8. Sats 98% on 2 L. Hemoglobin was 5, hematocrit 17, platelets 286, WBC 11.3, MCV 112.1. BMP was remarkable for sodium of 132, hypocalcemia, corrected calcium 8.8. Total bilirubin 5.2. AST 67, ALTs 47, alkaline phosphatase 317. Dr. Willett was called from the emergency room and requested admission to medical services and repeat of the CT of the abdomen with oral and IV contrast. Stool for occult blood was checked and it was positive. He ordered a dose of Venofer 200 mg if needed. According to patient, prior to this recent events he was in good health. Has prior history of prostate cancer diagnosed in 2016 and treated at [facility] with brachytherapy. He had serial PSAs done at facility in [place]. He doesn't follow locally with a urologist. Other than prostate cancer, he denied any history of coronary artery disease, no hypertension, no hyperlipidemia, no diabetes. Patient was admitted for further evaluation and treatment. These are the diagnosis used to treat patient. 1) Anemia (2) Ampullary carcinoma (3) History of prostate cancer (4) Obstructive jaundice due to cancer (5) Protein calorie malnutrition (6) Heme positive stool (7) percutaneous biliary drain (8) Ascites (9) Pleural effusion Assessment/Plan 65-year-old male with recent findings of ampullary mass, bx findings of 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 Patient with significant anemia, Jehovah witness, does not permit blood transfusion. CT abdomen and pelvis done with results as noted. - Venofer infusion initiated on admission for cancer diagnosis - Procrit 20K U qm/w/f - No labs unless patient is having a complication. Jehovah witness. Refuse blood products. -Hgb 6.2, some improvement - s/p 3rd Radiation treatment, will resume today -appreciate oncology and rad. oncology input. Bilat pleural effusions seen on xray. -monitor for now -can't tap due to low HH Right biliary draining performed. -Monitor output, >1000 overnight -IR evaluated, -intermittent flushing -Drain care . -T bili coming down, 3.3, Treatment was done with out complications. Ascites and peripheral edema noted on admission. -monitor for now, consider paracentesis /diagnostic when HH is better -low albumin seen on lab. monitor -elevate legs for edema History of prostate cancer, status post radiation at [facility] -Patient has serial PSAs done as outpatient SCDs for DVT prophylaxis Condition guarded, goals of care remain aggressive per patient and Supportive care to patient and family. PT eval CM for DC planning, C Hopefully discharge by mid week after last radiation treatment Patient seen by Dr. Yanez day of discharge. Pt Condition on Discharge: Guarded Discharge Disposition: Disch w/ Home Health Serv Discharge Instructions DIET: Follow Instructions for: As Tolerated, No Restrictions Activities you can perform: Weight Bearing as Burton New Medications: Guaifenesin Liq (Guaifenesin Liq) 100 mg/5 ML Soln 200 MG PO Q4H PRN COUGH #30 ML Continued Medications: Epoetin Inj (Procrit Inj) 20,000 Unit/Ml Inj 30478 UNITS SQ 3XWEEK Anemia #12 Ref 0 VIAL Ferrous Fumarate (Iron) 18 Mg Tab 18 MG PO DAILY Nutritional Supplement Ref 0 TAB Angélica Medina Apr 20, 2016 18:35
== END 2016-03-23 15:27 | disposition home health service (06) | DRG 435 ==
LOC: NEPE 14:30 → NEDA 16:56 → NEDH 20:56 → N06A 23:31 → HOCA 03-20 11:22
PROVIDERS: ADMIT Specialist; ATTEND Specialist
PROC: DW031ZZ Beam Radiation of Abdomen using Photons 1 - 10 MeV (ICD-10-PCS; principal; 2016-03-14)
DX: C24.1 Malignant neoplasm of ampulla of Vater (principal); K83.1 Obstruction of bile duct; E43 Unspecified severe protein-calorie malnutrition; J90 Pleural effusion, not elsewhere classified; R18.8 Other ascites; E83.51 Hypocalcemia; K92.2 Gastrointestinal hemorrhage, unspecified; K86.89 Other specified diseases of pancreas; D50.0 Iron deficiency anemia secondary to blood loss (chronic); R79.89 Other specified abnormal findings of blood chemistry; Z68.22 Body mass index [BMI] 22.0-22.9, adult; Z85.46 Personal history of malignant neoplasm of prostate; Z92.3 Personal history of irradiation
CPT/HCPCS: 74177; 77295; 77300; 77334; 77336; 77387; 77412; 77417; 77427; 80053; 82247; 82378; 83605; 85018; 85025; 85027; 85610; 85730; 86301; 87040; 93005; 99222; J1756; J2543; Q4081; Q9963; Q9967

== ENCOUNTER 2016-05-20 14:01 | Emergency (ER) | payer MEDICARE, OTHER ==
[~2016-05-20] VITALS: Ht 195.6 cm; Wt 70.0 kg
[2016-05-20 14:01] VITALS: BP 111/62; PULSE 67; RESP 15; TEMP 98.6; O2SAT 98
[~2016-05-20 14:01] MED LIST: GUAI100S7 PO; IRON18TA2 PO; PROC20005 SQ
--- NOTE | 2016-05-20 14:26 | PD ---
HPI Chief Complaint: Skin Problem Time Seen by Provider: 14:26 Travel History International Travel<30 days: No Contact w/Intl Traveler<30days: No Traveled to known affect area: No History of Present Illness HPI 65-year-old male with a history of adenocarcinoma of ampulla of Vater presents to the emergency department for evaluation of redness around recent drain site. The patient had a Whipple procedure performed 04/26/[address] Kiran in [place]. He had 2 MARTINA drains in his right lower abdomen after the surgery that were removed about a week postoperatively. States that they have been healing well without any problems until the past 2 days he's noticed redness and swelling around the sites of both drains worse on the more medial site. Denies any fever, chills, nausea, vomiting, diarrhea, constipation, discharge or drainage, abdominal pain. States that he is concerned it may be infected and he may need antibiotics. Symptoms are mild in severity. No aggravating or alleviating factors. The patient's oncologist is Dr. Willett. PCP Dr. Traore. No other complaints. PFSH Past Medical History Anemia: Yes Diminished Hearing: No Gastrointestinal Disorders: Yes (AMPULLARY MASS/ JAUNDICE) Past Surgical History Abdominal Surgery: Yes (HERNIA REPAIR) Other Surgery: Yes (PROSTATE RADIATION) Social History Alcohol Use: No Tobacco Use: No Substance Use: No Allergies-Medications (Allergen,Severity, Reaction): Coded Allergies: Cipro (Verified Allergy, Unknown, RASH, 05/20/16) Piperazine (Verified Allergy, Unknown, RASH, 05/20/16) Reported Meds & Prescriptions Reported Meds & Active Scripts Active Keflex (Cephalexin) 500 Mg Cap 500 Mg PO Q6H 10 Days Reported Creon (Amylase/Lipase/Protease) 12,000-38,000-60,000 Units Cap 2 Cap PO TIDPC Review of Systems Except as stated in HPI: all other systems reviewed are Neg Physical Exam Narrative GENERAL: Well-nourished and well-developed pleasant male patient in no acute distress who is nontoxic appearing. SKIN: Warm and dry. HEAD: Normocephalic and atraumatic. EYES: No injection, drainage, or hyphema noted. PERRLA. EOMI. ENT: No nasal drainage noted. Oropharynx is clear. NECK: Supple and the trachea is midline. CARDIOVASCULAR: Regular rate and rhythm. RESPIRATORY: Breath sounds are equal bilaterally with no accessory muscle use, wheezing, rhonchi, or crackles. GASTROINTESTINAL: Right lower abdomen with two healing 1 cm drain sites. The lateral site is only slightly erythematous. The medial site is more erythematous and warm with an area of fluctuance. There is a midline surgical scar that appears to be healing well with no erythema. Abdomen is soft, non- tender, and nondistended. MUSCULOSKELETAL: No obvious deformities, swelling, cyanosis, or ecchymosis is present throughout the upper and lower extremities. Patient has full range of motion without any signs of neurovascular compromise. NEUROLOGICAL: Awake, alert, and oriented. Normal speech and gait. Cranial nerves are grossly intact. Data Data Last Documented VS Vital Signs Date Time Temp Pulse Resp B/P Pulse Ox O2 Delivery O2 Flow Rate FiO2 05/20/16 14:34 99.4 65 16 115/68 100 Room Air Orders Lidocaine 1% Inj (50 Ml) (Xylocaine 1% I (05/20/16 16:00) Wound Culture And Gram Stain (05/20/16 16:25) [facility] Medical Decision Making Medical Screen Exam Complete: Yes Emergency Medical Condition: Yes Differential Diagnosis Abscess versus wound infection versus seroma versus cellulitis Narrative Course 65-year-old male status post Whipple procedure 1 month ago presents to the emergency department for evaluation of redness and swelling at the sites of previous MARTINA drains. Patient is afebrile, vital signs are stable. Patient appears well overall. Abdomen is soft and nontender. The erythema is localized to just the sites of the drains, does not extend to the large medial incision. There does appear to be some fluctuance underneath one of the drain sites that feels like an abscess. It appears very superficial, does not appear to extend deep. This likely could have superficial I&D and antibiotic therapy, though we'll call the patient's surgeon and discuss before proceeding with procedure. We attempted to call the patient's surgeon and were unable to get connected. The patient and family are eager to be discharged home. We'll go ahead and do I &D and place the patient on antibiotic therapy. He is to follow-up as an outpatient with Dr. Willett and to call his surgeon tomorrow. Patient and family are comfortable with this plan. I discussed the case with my attending physician Dr. Keith who is aware of the patients history, physical examination findings, and treatment plan. Procedures Procedure Narrative After the risks and benefits were discussed the following procedure was performed: INCISION AND DRAINAGE OF ABSCESS: The area was prepped and was sterilely draped. A subcutaneous wheal of 1% Xylocaine with a total number 3 mL was used to anesthetize the area. The area was properly anesthetized. A number 11 scalpel was used to make a 1 -cm incision across the area of the abscess. Purulence was expelled. Cultures were obtained. The abscess was drained an irrigated with normal saline. Sterile dressing applied. Diagnosis Primary Impression: Abdominal wall abscess Referrals: Primary Care Physician Patient Instructions: Abscess (ED), Abscess Incision and Drainage (ED), General Instructions Additional Instructions: Wash area gently with soap and water. Apply topical antibiotic ointment. Take medication as prescribed with food and a full glass of water. Call your surgeon tomorrow for follow-up. Return to the ED for any acute worsening of symptoms. Med/Other Pt SpecificInfo: Prescription(s) given Scripts Cephalexin (Keflex)500 Mg [id number] Mg PO Q6H 10 Days Ref 0 Prov:Bossman Keith MD 05/20/16 Disposition: 01 DISCHARGE HOME Condition: Stable Alis Dobbs May 20, 2016 14:26
[2016-05-20] MEDS ORDERED: CREON12 PO (14:29)
[2016-05-20 14:34] VITALS: BP 115/68; PULSE 65; RESP 16; TEMP 99.4; O2SAT 100
[2016-05-20] MEDS ORDERED: LIDOCAINE HCL 1% 50 ML VIAL INFIL ONE (16:00)
--- NOTE | 2016-05-20 16:11 | PD ---
Data Data Last Documented VS Vital Signs Date Time Temp Pulse Resp B/P Pulse Ox O2 Delivery O2 Flow Rate FiO2 05/20/16 14:34 99.4 65 16 115/68 100 Room Air Orders Lidocaine 1% Inj (50 Ml) (Xylocaine 1% I (05/20/16 16:00) MDM Supervised Visit with MARY JANE: Yes Narrative Course The history, exam, and medical decision-making in the associated mid-level provider note were completed with my assistance. I reviewed and agree with the findings presented. I attest that I had a [id number] encounter with the patient on the same day, and personally performed and documented my assessment and findings in the medical record. *My assessment and Findings: 65-year-old man status post Whipple procedure for local malignancy at the ampulla, who presents with some local pain redness swelling right at the site where he had a MARTINA drain pulled. This started just over the past couple days. On exam is clearly small area of fluctuance that needs to be opened up and drained. He's doing otherwise well. He has no abdominal tenderness. There is no evidence that this could indicate with abdominal process. We tried to call the surgeon, and apparently he did call back but got disconnected. We're waiting for call back again but the family was getting a little bit antsy. I think we can safely drain this abdominal wall abscess, and have him follow-up with his oncologist. They're comfortable with this. Bossman Keith MD May 20, 2016 16:11
[2016-05-20] MEDS ORDERED: CEPH-460 PO (16:26)
== END 2016-05-20 16:38 | disposition home or self-care (01) ==
LOC: NEPC 14:01
DX: L02.211 Cutaneous abscess of abdominal wall (principal); Z98.890 Other specified postprocedural states; T81.9XXA Unspecified complication of procedure, initial encounter; T81.4XXA Infection following a procedure, initial encounter; B99.9 Unspecified infectious disease
CPT/HCPCS: 10060; 87070; 87205

== ENCOUNTER 2016-10-24 16:08 | Emergency (ER) | payer OTHER, MEDICARE ==
[~2016-10-24] VITALS: Ht 195.6 cm; Wt 79.0 kg
[~2016-10-24 16:08] MED LIST changes: +CEPH-460 PO; +CREON12 PO; -GUAI100S7 PO; -IRON18TA2 PO; -PROC20005 SQ
[2016-10-24 16:12] VITALS: BP 123/62; PULSE 50; RESP 20; TEMP 97.9; O2SAT 99
[2016-10-24] MEDS ORDERED: ROBA500T PO (16:36)
[2016-10-24] MEDS ORDERED: IBUP-232 PO (16:36)
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
[2016-10-24] MEDS ORDERED: METHOCARBAMOL 500 MG TAB PO ONE (16:45)
[2016-10-24] MEDS ORDERED: IBUPROFEN 800 MG TAB PO ONE (16:45)
== END 2016-10-24 16:52 | disposition home or self-care (01) ==
LOC: NEPK 16:08
DX: S46.811A Strain of other muscles, fascia and tendons at shoulder and upper arm level, right arm, initial encounter (principal); S46.812A Strain of other muscles, fascia and tendons at shoulder and upper arm level, left arm, initial encounter; D64.9 Anemia, unspecified; V43.62XA Car passenger injured in collision with other type car in traffic accident, initial encounter; Z85.46 Personal history of malignant neoplasm of prostate
CPT/HCPCS: 99283